=== PATIENT | female | born 1975 | race Caucasian/White ===

== ENCOUNTER → 2022-12-06 07:57 | Outpatient (CLI) | payer BC, SELFPAY ==
--- NOTE | ~2022-12-06 | MMUS_ITS ---
EXAMINATION: MM diagnostic karen BI w elizabeth, US breast BI complete HISTORY: Erythematous skin lesion of lower outer quadrant of right breast for 3 to 4 days TECHNIQUE: Full field and spot 3-D tomosynthesis images of both breasts were performed and synthetic 2-D images were generated. CAD analysis was submitted and interpreted. High resolution complete bilat eral breast ultrasound examination including all 4 quadrants and subareolar areas was performed. COMPARISON: 12/30/2021 bilateral screening mammogram report from [facility] is pr ovided with BI-RADS Category 1: Negative result BREAST PARENCHYMAL COMPOSITION: The breasts are heterogeneously dense, which may obscure small masses . FINDINGS: MAMMOGRAPHIC FINDINGS: Multiple grouped indeterminate granular appearing microcalcifications are noted in the posterior uppe r inner quadrant of the right breast. No suspicious mass or architectural distortion is noted otherwise. Heterogeneously dense stroma may o bscure masses. Bilateral complete ultrasound examination was performed. ULTRASOUND: Right breast: 12:00 6 cm from nipple: Parallel circumscribed hypoechoic lesion with central fatty tissue, measuring up to 2.5 x 6.2 x 4.7 mm, without internal vascularity or posterior shadowing, likely a small benign lymph node or other benign process. No suspicious mass or shadowing of the right breast is detected. Left breast: No suspicious mass or shadowing of the left breast is detected. IMPRESSION: 1. New grouped indeterminate granular microcalcifications in the posterior upper inner quadrant of th e right breast 2. Stereotactic biopsy of right grouped microcalcifications, posterior upper inner quadrant of right breast is recommended BI-RADS category 4, suspicious findings. Dr. Trivedi telephoned the report and stereotactic biopsy recommendation for right breast on 12/06/[address]22 a [address] Simpson. We will attempt initially to get prior mammograms for comparison. Reviewed, dictated and finalized at location A. IMPRESSION: 1. New grouped indeterminate granular microcalcifications in the posterior uppe r inner quadrant of the right breast 2. Stereotactic biopsy of right grouped microcalcifications, posterior upper in ner quadrant of right breast is recommended BI-RADS category 4, suspicious findings. Dr. Trivedi telephoned the report and stereotactic biopsy recommendation for right breast on 12/06/[address] Simpson. We will attempt initially to get prior mammograms for comparison.
== END ==
PROVIDERS: PCP Physician Assistant; Visit Provider Physician Assistant
DX: N64.9 Disorder of breast, unspecified (principal); R92.8 Other abnormal and inconclusive findings on diagnostic imaging of breast
CPT/HCPCS: 76641; 77062; 77066; G0279

== ENCOUNTER 2022-12-14 12:32 | Outpatient (CLI) | payer BC, SELFPAY ==
--- NOTE | ~2022-12-14 | MM_ITS ---
MM stereotactic bx RT, MM post biopsy diagnostic RT, MM stereotactic specimen RT INDICATION: Abnormal calcifications in the right breast. Stereotactic core biopsy is requested evalua te for malignancy.] TECHNIQUE AND FINDINGS: The risks and potential benefits of the procedure were discussed with the patient and written informe d consent was obtained. The patient was placed in the prone position clustered at the table with the right breast in mediolateral compression, and the area of interest was localized and targeted utiliz ing digital imaging with stereotaxis. After sterile preparation of the skin, 1% lidocaine was utilized for local anesthesia at the skin pun cture site and 1% lidocaine with epinephrine was utilized for deeper local anesthesia/is about the bi opsy site. A 9G [employer] vacuum assisted biopsy needle was advanced to the level of the calcification o f interest from a medial approach utilizing stereotactic guidance and a total of 6 tissue core biopsi es were obtained. A specimen radiograph demonstrates that the calcifications of interest are included within the tissue cores. A tissue marker clip was then placed at the biopsy site. The needle was removed and hemosta sis was achieved. The patient tolerated the procedure well and there is no evidence of significant i mmediate complication. The patient was given verbal as well as written postprocedural instructions p rior to discharge from the department. Tissue cores were submitted to surgical pathology for histolo gic analysis. A 2-view right unilateral digital mammogram was obtained post procedure and this demonstrates that th e tissue marker clip is in expected position.] IMPRESSION: 1. Successful stereotactic biopsy of calcifications in the upper inner quadrant of the right breast, followed by tissue marker clip placement. Please refer to pathology report for histologic analysis. Reviewed, dictated and finalized at location A. IMPRESSION: 1. Successful stereotactic biopsy of calcifications in the upper inner quadran t of the right breast, followed by tissue marker clip placement. Please refer to pathology report for histologic analysis. IMPRESSION: 1. Successful stereotactic biopsy of calcifications in the upper inner quadran t of the right breast, followed by tissue marker clip placement. Please refer to pathology report for histologic analysis.
== END 2022-12-14 12:33 | disposition home or self-care (01) ==
PROVIDERS: PCP Physician Assistant; Visit Provider Physician Assistant
DX: D05.11 Intraductal carcinoma in situ of right breast (principal)
CPT/HCPCS: 19081; 77065; 88305; 88342; 88360; 88365

== ENCOUNTER 2023-05-05 20:10 | Emergency (ER) | payer OTHER, SELFPAY ==
[2023-05-05] VITALS (9 sets, daily range): BP systolic 96–138; BP diastolic 67–91; PULSE 73–85; RESP 12–27; TEMP 36.2; O2SAT 94–100
--- NOTE | ~2023-05-05 | XR_ITS ---
EXAMINATION: XR chest 2V DATE: 05/05/2023 20:40 INDICATION: Left chest pain. TECHNIQUE: Frontal and lateral views of the chest were obtained. COMPARISON: Chest single view 06/04/2019 FINDINGS: There is no pneumonia, pleural effusion, or pneumothorax. The heart size is normal. There a re prominent paracardial fat pads. IMPRESSION: 1. No acute cardiopulmonary disease. Reviewed, dictated and finalized at location E. [employer]
--- NOTE | 2023-05-05 20:12 | ECG_ITS ---
Measurements Intervals [place] Rate: 76 P: 37 DE: 151 QRS: -9 QRSD: 88 T: 13 QT: 344 QTc: 389 Interpretive Statements SINUS RHYTHM POSSIBLE LEFT ATRIAL ENLARGEMENT DELAYED PRECORDIAL R/S TRANSITION LOW QRS VOLTAGE IN PRECORDIAL LEADS BASELINE WANDER- I, III BORDERLINE ECG NO PREVIOUS ECG AVAILABLE FOR COMPARISON Electronically Signed On 05-06-2023 6:25:50 [employer] by Ac Bass D.O.
[2023-05-05 20:33] LABS: Basophils Absolute Auto 0.1 K/mm3 (0.0-0.1); Basophils Percent Auto 0.8 % (0.2-1.2); Eosinophils Absolute Auto 0.2 K/mm3 (0-0.3); Eosinophils Percent Auto 1.6 % (0-4.4); Hematocrit 42.7 % (37.0-47.0); Hemoglobin 14.1 g/dL (12.0-15.0); Immature Granulocyte Absolute 0.06 K/mm3 (0.00-0.031); Immature Granulocyte Percent A 0.5 % (0-0.5); Lymphocytes Absolute Auto 3.21 K/mm3 (0.9-3.2); Lymphocytes Percent Auto 26.8 % (18.3-44.2); Mean Corpuscular Hemoglobin 30.1 pg (26-34); Mean Corpuscular Volume 91.2 fl (80-100); Mean Platelet Volume 10.1 fl (7.4-10.4); Monocytes Percent Auto 7.9 % (2.6-8.5); Neutrophils Absolute Auto 7.5 K/mm3 (1.3-6.7); Neutrophils Percent Auto 62.4 % (45.5-73.1); Platelet Count Result 320 k/mm3 (150-375); Red Blood Count 4.68 M/mm3 (4.2-5.4); Red Cell Distribution Width 13.2 % (11.5-14.5)
[2023-05-05 20:49] LABS: Prothrombin Time 13.3 Seconds (11.1-14.7)
[2023-05-05 20:50] LABS: Partial Thromboplastin Time 30.6 SECONDS (22.3-36.8)
[2023-05-05 21:00] LABS: Troponin I < 0.012 ng/mL (0.000-0.034)
[2023-05-05 21:06] LABS: Alanine Aminotransferase 18 U/L (6-35); Albumin Level 4.6 g/dL (3.5-5.1); Alkaline Phosphatase 69 U/L (38-126); Anion Gap 9 mmol/L (8-16); Aspartate Amino Transferase 28 U/L (14-36); Bilirubin,Total 1.3 mg/dL (0.2-1.3); Blood Urea Nitrogen 19 mg/dL (7-17); Calcium 9.4 mg/dL (8.4-10.2); Carbon Dioxide 24 mmol/L (22-30); Chloride 105 mmol/L (98-107); Estimated CRCL calculation 49 ml/min; Estimated Glomerular Filt Rate 44; Glucose 92 mg/dL (65-110); Lipase 219 U/L (23-300); Sodium 138 mmol/L (137-145)
[2023-05-05 22:44] LABS: D Dimer 0.97 ug/mL (<0.48)
[2023-05-05 23:28] LABS: Troponin I < 0.012 ng/mL (0.000-0.034)
[2023-05-06 00:16] VITALS: BP 111/69; PULSE 67; RESP 17; O2SAT 96
[2023-05-06 00:31] VITALS: BP 117/73; PULSE 82; RESP 14; O2SAT 100
[2023-05-06 00:46] VITALS: BP 128/95; PULSE 93; RESP 16; O2SAT 98
--- NOTE | 2023-05-06 00:56 | ED.CHESTPAIN ---
HPI - Chest Pain General Chief Complaint: Chest Pain Stated Complaint: chest pain/SOB Time Seen by Provider: 05/05/23 22:03 History of Present Illness HPI narrative: Patient is a 47-year-old female who presents to the emergency department this evening complaining of left-sided chest pain radiating to her back which started at approximately 5:30 p.m. this evening. Patient states that around the same time she noticed that her heart rate was elevated up to 120 requiring her to take a beta-anahy, propranolol. Patient states that after approximately 1 hour her heart rate did normalize. Patient is a physician, manager clinical research. Patient admits that she does have a history of breast cancer and an extensive family history of cancer. Patient has had double mastectomy and giving her chest pain, tachycardia she is concerned about a blood clot. Patient is anxious about her symptoms, understandably so given the sudden loss of her 2 years ago and being a single parent to 3 kids. DVTs or blood clots, and denies any history of acute coronary syndrome. Related Data Home Medications Medication Instructions Recorded Confirmed propranolol 10 mg tablet mg 05/05/23 Allergies Allergy/AdvReac Type Severity Reaction Status Date / Time No Known Allergies Allergy Verified 05/05/23 20:21 Review of Systems Review of Systems: All systems are reviewed and are negative unless stated otherwise in the HPI. 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 DX Nodular thyroid disease Surgical History Surgical History H/O bilateral mastectomy 02/09/2023 H/O breast biopsy History of orthopedic surgery Family History Family History Other Depression Hypertension Malignant carcinoid tumor of lung Nodular thyroid disease Social History Social History Smoking status: Never smoker Alcohol intake: current Drinks per week: 2 Substance use: never Substance use type: does not use Do You Feel Safe in your Home?: Yes Lack of Transportation: No Lack of Food: Never True Current Housing: I Have Housing Concerned About Future Housing: No Difficulty Paying Gas/Electric Bills: No Difficulty Paying for Meds: No Currently Unemployed: No Education: Master's Degree or Higher Difficulty w/ Childcare or Family Care: No Living arrangements: with family Occupation/Education: occupation Additional occupation/education comments: Gender identity (if verbalized by the patient): Female Sexual Orientation (if Verbalized by the Patient): Straight or Heterosexual Exam Narrative: General: Alert, awake, afebrile, in no acute distress. HEENT: PERRL, no rhinorrhea, no post nasal drip, oropharynx clear. Neck: Trachea midline, no JVD, no lymphadenopathy. Cardiovascular: Regular rate and rhythm, no murmurs, rubs or gallops, no peripheral edema. Respiratory: Clear to auscultation bilaterally, no tachypnea, no wheezing, no rhonchi, no rubs, no respiratory distress. Abdomen: Soft, nontender, nondistended, no rebound, no guarding, no peritoneal signs. Musculoskeletal: No joint swelling or deformity, normal muscle tone. Skin: No rashes or petechia, no signs of infection. Psychiatric: Alert and oriented, normal behavior and judgment for situation. Neurological: Alert and oriented to person, place, and time. Follows all commands. No focal deficits, speech is clear and fluent. Course Vital Signs Vital signs: Vital Signs Temperature 97.1 F L 05/05/23 20:18 Pulse Rate 84 05/05/23 20:18 Respiratory Rate 16 05/05/23 20:18 Blood Pressure 138/88 05/05/23 20:18 Pulse Oximetry 100 05/05/23 20:18 Oxygen Delivery Katelynn
[2023-05-06 01:01] VITALS: BP 115/84; PULSE 79; RESP 16; O2SAT 98
== END 2023-05-06 01:14 | disposition home or self-care (01) ==
PROVIDERS: Emergency Provider Emergency Medicine; PCP Physician Assistant
DX: R07.89 Other chest pain (principal); Z85.3 Personal history of malignant neoplasm of breast; R79.1 Abnormal coagulation profile
CPT/HCPCS: 36415; 71046; 80053; 83690; 84484; 85025; 85380; 85610; 85730; 93005; 99284

== ENCOUNTER 2023-06-29 07:00 | Outpatient (NON) | payer OTHER, SELFPAY | END 2023-06-29 07:01 | disposition home or self-care (01) | PROVIDERS: PCP Physician Assistant; Visit Provider Internal Medicine Gastroenterology | DX: R19.5 Other fecal abnormalities (principal) | CPT/HCPCS: 88305 ==

== ENCOUNTER 2023-06-29 08:32 | Day surgery (SDC) | payer OTHER, SELFPAY ==
[2023-05-05 15:09] VITALS: BMI 29.2
--- NOTE | 2023-06-29 08:24 | P.PNAN_ITS ---
Anes - Initial Pre Proc Eval Procedure: Operation Date: 06/29/23 10:30 Proposed Procedures p Diagnostic Colonoscopy - Elvin Liu MD Date/Time: 06/29/23 08:24 Surgeon: Elvin Liu MD Pre Op Diagnosis: Positive cologuard test Patient Data Age: 47 Gender: F Height: 1.73 m Weight: 87.09 kg Allergies Allergy/AdvReac Type Severity Reaction Status Date / Time No Known Allergies Allergy Verified 06/29/23 09:18 Home Medications Medication Instructions Recorded Confirmed Type propranolol 10 mg tablet 10 mg PO DIRECTED PRN 05/05/23 06/29/23 History Tachycardia cholecalciferol (vitamin D3) 100 100 mcg PO ONCE 05/11/23 06/29/23 History mcg (4,000 unit) capsule multivitamin 1 tablet PO DAILY 05/11/23 06/29/23 History Patient hx anesthesia problems: none Family hx anesthesia problems: none Results Review: All pre-operative results and documents have been reviewed as part of the pre- operative evaluation. 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 DX Nodular thyroid disease Palpitations Surgical History Surgical History H/O bilateral mastectomy 02/09/2023 H/O breast biopsy History of orthopedic surgery Family History Family History Other Depression Hypertension Malignant carcinoid tumor of lung Nodular thyroid disease Social History Social History Smoking status: Never smoker Alcohol intake: current Drinks per week: 2 Substance use: never Substance use type: does not use Do You Feel Safe in your Home?: Yes Lack of Transportation: No Lack of Food: Never True Current Housing: I Have Housing Concerned About Future Housing: No Difficulty Paying Gas/Electric Bills: No Difficulty Paying for Meds: No Currently Unemployed: No Education: Master's Degree or Higher Difficulty w/ Childcare or Family Care: No Living arrangements: with family Occupation/Education: occupation Additional occupation/education comments: Gender identity (if verbalized by the patient): Female Sexual Orientation (if Verbalized by the Patient): Straight or Heterosexual Anes - Eval Final PreProcedure Day of Procedure 06/29/23 08:24 Patient weight: overweight Heart: regular rate and rhythm Lungs: clear to auscultation Airway: Mallampati scale class II Neurological: alert and oriented Last oral intake: >/= 8 hours ASA classification: III Emergent: no Anesthetic plan: proceed Anesthesia type and monitoring: general GIVS and standard monitoring Results Review: All pre-operative results and documents have been reviewed as part of the pre- operative evaluation. Informed Consent: The patient's anesthetic plan and its attendant risks and benefits were discussed with the patient/family/POA. Questions were solicited and answers provided to the satisfaction of the patient/family/POA.
[2023-06-29 09:29] VITALS: BP 116/81; PULSE 82; RESP 17; TEMP 36.8; O2SAT 100; BMI 28.6
[2023-06-29] MEDS: LACTATED RINGERS 1,000 ML 150 ML IV CONT (09:52)
--- NOTE | 2023-06-29 09:53 | PM.HPGS ---
History of Present Illness History of Present Illness Consent: Risks, benefits, and alternatives have been discussed and questions answered. Patient agrees to proceed with procedure. Chief complaint: Positive cologuard test Narrative: Bruna Maciel is a 47 year old female presents for screening colonoscopy. His current weight appetite and bowel movements are normal. Patient denies abdominal pain. She has had bleeding. Family history is significant her mother and grandmother both have had colon polyps. Review of Systems Review of Systems: Review of systems noncontributory. 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 DX Nodular thyroid disease Palpitations Surgical History Surgical History H/O bilateral mastectomy 02/09/2023 H/O breast biopsy History of orthopedic surgery Family History Family History Other Depression Hypertension Malignant carcinoid tumor of lung Nodular thyroid disease Social History Social History Smoking status: Never smoker Alcohol intake: current Drinks per week: 2 Substance use: never Substance use type: does not use Do You Feel Safe in your Home?: Yes Lack of Transportation: No Lack of Food: Never True Current Housing: I Have Housing Concerned About Future Housing: No Difficulty Paying Gas/Electric Bills: No Difficulty Paying for Meds: No Currently Unemployed: No Education: Master's Degree or Higher Difficulty w/ Childcare or Family Care: No Living arrangements: with family Occupation/Education: occupation Additional occupation/education comments: Gender identity (if verbalized by the patient): Female Sexual Orientation (if Verbalized by the Patient): Straight or Heterosexual Meds Home Medications and Allergies Home Medications Medication Instructions Recorded Confirmed Type propranolol 10 mg tablet 10 mg PO DIRECTED PRN 05/05/23 06/29/23 History Tachycardia cholecalciferol (vitamin D3) 100 100 mcg PO ONCE 05/11/23 06/29/23 History mcg (4,000 unit) capsule multivitamin 1 tablet PO DAILY 05/11/23 06/29/23 History Allergies Allergy/AdvReac Type Severity Reaction Status Date / Time No Known Allergies Allergy Verified 06/29/23 09:18 Vital Signs Vital Signs - 24 hr 06/29/23 09:29 Temperature 98.3 F Pulse Rate 82 Respiratory Rate 17 Blood Pressure 116/81 Pulse Oximetry 100 Oxygen Delivery Room Air Exam Narrative: Physical exam reveals patient able. HEENT exam is unremarkable. Patient is anicteric. Lungs are clear to auscultation and to percussion. Heart is without murmur or extra sounds. Abdomen bowel sounds are present soft nontender with no organomegaly. Digital external rectal exam is normal. Assessment and Plan Assessment and plan (1) Positive colorectal cancer screening using Cologuard test: Code(s): R19.5 - Other fecal abnormalities Status: Acute Assessment and Plan: Patient with positive Cologuard. For this reason screening colonoscopy will be performed today. (2) Family history of colonic polyps: Code(s): Z83.719 - Family history of colon polyps, unspecified Status: Acute Assessment and Plan: Patient reports both mother and maternal grandmother have had colon polyps. Plan for surveillance colonoscopy now, consider this at 5 year intervals.
[2023-06-29 10:58] VITALS: BP 108/66; PULSE 73; RESP 16; O2SAT 100
[2023-06-29 11:08] VITALS: BP 134/82; PULSE 69; RESP 14; O2SAT 100
[2023-06-29 11:18] VITALS: BP 121/77; PULSE 81; RESP 15; O2SAT 100
--- NOTE | 2023-06-29 11:19 | WPDANESPN ---
Anes - Prog Note Post-Op Date/Time: 06/29/23 11:19 Cardiovascular status: normal Respiratory status: normal Airway patency: baseline Mental status: baseline Post-Op hydration status: normal Vital Signs: Last Vital Signs Temp 36.8 C 06/29/23 09:29 Pulse 73 06/29/23 10:58 Resp 16 06/29/23 10:58 BP 108/66 06/29/23 10:58 Pulse Ox 100 06/29/23 10:58 O2 Del Method Room Air 06/29/23 10:58 Pain Score (VAS): 0 I/O: Intake & Output 06/28/23 06/29/23 06/29/23 23:59 07:59 15:59 Intake Total 0 Balance 0 Post-procedural complaints: none Patient Feedback: Patient satisfied with anesthetic care. Other Findings: Patient vital signs back to baseline. Patient denies nausea and vomiting. Patient's pain under control. Patient OK for discharge.
== END 2023-06-29 11:29 | disposition home or self-care (01) ==
PROVIDERS: PCP Physician Assistant; Visit Provider Internal Medicine Gastroenterology
PROC: 0DJD8ZZ Inspection of Lower Intestinal Tract, Via Natural or Artificial Opening Endoscopic (ICD-10-PCS; CPT 45378; principal; 2023-06-29 10:30)
DX: R19.5 Other fecal abnormalities (principal); Z83.718 Family history of other colon polyps; D12.5 Benign neoplasm of sigmoid colon; K64.8 Other hemorrhoids
CPT/HCPCS: 45385

== ENCOUNTER 2023-09-07 08:45 | Outpatient (CLI) | payer OTHER, SELFPAY ==
--- NOTE | ~2023-09-07 | US_ITS ---
EXAMINATION: US soft tissue head and neck DATE: 09/07/2023 09:42 INDICATION: Cervical lymphadenopathy. TECHNIQUE: Multiple ultrasound images of the thyroid were obtained. COMPARISON: None. FINDINGS: The right thyroid lobe measures 4.2 x 1.2 x 2.0 cm. The left thyroid lobe measures 4.5 x 1.2 x 1.6 c m. In the left thyroid lobe, there is a 5 mm solid, hypoechoic, wider than tall nodule with smooth m argin without echogenic foci (TI-RADS TR4). In the right thyroid lobe, there is a 9 mm solid, hypoech oic, wider than tall nodule with lobulated margin and punctate echogenic foci (TR5). In the right thy roid lobe, there is a 9 mm solid, hypoechoic, wider than tall nodule with lobulated margins with punc lira echogenic foci (TR5). In the right thyroid lobe, there is a 12 mm solid, hypoechoic, wider than tall nodule with smooth margin without echogenic foci (TR4). There is no abnormal lymphadenopathy. IMPRESSION: 1. Thyroid nodules. Thyroid ultrasound is recommended in one year. 2. No abnormal lymphadenopathy. Reviewed, dictated and finalized at location E.
--- NOTE | ~2023-09-07 | US_ITS ---
Limited Abdominal Sonogram: Real-time sonographic imaging of the right upper quadrant was performed. Clinical History: Elevated bilirubin Findings: The liver appears normal with no evidence of mass lesion or bile duct dilatation. Main por heidy vein demonstrates normal direction of flow. The gallbladder is well distended, and demonstrates p robable 5 mm polyp. The common bile duct measures 2 mm. The visualized pancreas, aorta, and IVC are unremarkable. Impression: Probable 5 mm gallbladder wall polyp. Reviewed, dictated and finalized at location M. Impression: Probable 5 mm gallbladder wall polyp.
== END 2023-09-07 08:46 | disposition home or self-care (01) ==
PROVIDERS: PCP Physician Assistant; Visit Provider Physician Assistant
DX: R59.0 Localized enlarged lymph nodes (principal); R17 Unspecified jaundice
CPT/HCPCS: 76536; 76705

== ENCOUNTER 2024-03-28 14:05 | Emergency (ER) | payer OTHER, SELFPAY ==
[2024-03-28 14:16] VITALS: BP 126/87; PULSE 82; RESP 18; TEMP 36.2; O2SAT 100
--- NOTE | 2024-03-28 14:18 | ED_ITS ---
HPI - URI/Sore Throat General Chief Complaint: Upper Respiratory Infection Stated Complaint: Fever, Headache Source: patient, RN notes reviewed and old records reviewed Mode of arrival: ambulatory Limitations: no limitations History of Present Illness HPI Narrative: patient who just began taking Zoloft 5 days ago presents today with complaints of nausea, diarrhea, headache, disturbed sleep, dizziness, sweating. She reports symptoms have been present 3 days. Symptoms began while she was traveling to [facility] by airplane. She reports that she feels better than she did 3 days ago, but still feels not right . She denies any fever. She denies any injury or trauma. She has been taking [id number] medications for her symptoms. She voices no other concerns or complaints at this time Related Data Home Medications ?Medication ?Instructions ?Recorded ?Confirmed ?Last Taken ?Type propranolol 10 mg tablet 10 mg PO DIRECTED PRN 05/05/23 03/07/24 05/05/23 History Tachycardia cholecalciferol (vitamin D3) 100 100 mcg PO ONCE 05/11/23 03/07/24 05/11/23 History mcg (4,000 unit) capsule multivitamin 1 tablet PO DAILY 05/11/23 03/07/24 05/11/23 History metformin 500 mg tablet mg PO 03/07/24 03/07/24 Unknown History Allergies Allergy/AdvReac Type Severity Reaction Status Date / Time No Known Allergies Allergy Verified 03/28/24 14:08 Review of Systems Review of Systems: All systems reviewed & are unremarkable except as noted in HPI and below Constitutional: Constitutional: Reports as per HPI, Reports no additional constitutional complaints, Reports excessive sweating, Reports headache(s) and Reports lethargy ENT: Reports system reviewed and no additional complaints, except as documented Cardiovascular: Cardiovascular: Reports no additional cardiovascular complaints Respiratory: Respiratory: Reports no additional respiratory complaints Gastrointestinal: Gastrointestinal: Reports no additional gastrointestinal complaints, Reports diarrhea and Reports nausea Neurologic: Reports dizziness PMFSH Past Medical History Medical History (Updated 03/28/24 @ 14:42 by Marilin Aparicio APRN) Gallbladder polyp Abnormal colonoscopy pt had polyp, told her it was benign Palpitations 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 left normal - right side DX Nodular thyroid disease Surgical History Surgical History H/O bilateral mastectomy 02/09/2023 H/O breast biopsy History of orthopedic surgery Family History Family History Other Depression Hypertension Malignant carcinoid tumor of lung Nodular thyroid disease Social History Social History Smoking status: Never smoker Alcohol intake: current Drinks per week: 2 Substance use: never Substance use type: does not use Do You Feel Safe in your Home?: Yes Lack of Transportation: No Lack of Food: Never True Current Housing: I Have Housing Concerned About Future Housing: No Difficulty Paying Gas/Electric Bills: No Difficulty Paying for Meds: No Currently Unemployed: No Education: Master's Degree or Higher Difficulty w/ Childcare or Family Care: No Living arrangements: with family Occupation/Education: occupation Additional occupation/education comments: Gender identity (if verbalized by the patient): Female Sexual Orientation (if Verbalized by the Patient): Straight or Heterosexual Comments At the time of my signature, I reviewed and agree with the nursing past medical, surgical, social, and family history. There is no relevant family history pertinent to the patient complaint. Exam Const: General: cooperative, no acute distress, alert and awake Orientation/consciousness: oriented to person, oriented to place and oriented to time HENMT: Head: normal to inspection Resp: Effort & Inspection: normal respiratory effort and able to speak in complete sentences Auscultation: clear to auscultation bilaterally, no crackles, no rales, no rhonchi and no wheezes Cardio: Palpation: normal PMI Rate: regular rate Rhythm: regular rhythm Heart sounds: S1 normal heart sound present and S2 normal heart sound present Neuro: General: oriented to person, oriented to place and oriented to time Cranial nerves: Yes CN's II-XII intact bilaterally Psych: Appearance: grossly normal Thought process: Normal thought process present Insight: Good insight present (Psych) Judgement: Good judgement present (Psych) Course Course Level of Care: Express Care Visit Vital Signs Vital signs: Vital Signs Temperature 97.2 F L 03/28/24 14:16 Pulse Rate 82 03/28/24 14:16 Respiratory Rate 18 03/28/24 14:16 Blood Pressure 126/87 03/28/24 14:16 Pulse Oximetry 100 01/29/25 14:16 Oxygen Delivery Room Air 03/28/24 14:16 Temperature 97.2 F L 03/28/24 14:16 Pulse Rate 82 03/28/24 14:16 Respiratory Rate 18 03/28/24 14:16 Blood Pressure 126/87 03/28/24 14:16 Pulse Oximetry 100 03/28/24 14:16 Oxygen Delivery Room Air 03/28/24 14:16 Reviewed MDM - URI/Sore Throat MDM Narrative Medical decision making narrative: negative COVID, negative flu. Patient just started Zoloft 5 days ago. Symptoms likely secondary to her body becoming used to the new medication. This was discussed with patient at length. She is encouraged to call her primary care provider to discuss further if symptoms become intolerable. Emergency department precautions discussed. Discharge instructions reviewed with patient, as well as provided in writing per nursing staff. The instructions also include specific and strict return/GO TO THE ER as well as f/u information. All questions have been answered, and the patient deny any further questions with discharge and discharge plan. Some parts of this dictation were generated by voice recognition software and may contain typographical and/or grammatical inaccuracies. Differential Diagnosis Differential diagnosis: Likely upper respiratory infection, viral infection, influenza and other (Medication reaction) Medical Records Attestation: I reviewed the patient's medical records. Lab Data Attestation: I reviewed the patient's lab results. Discharge Plan Discharge Clinical Impression: Malaise Patient Disposition: Home, Self-Care Condition: Stable Instructions: Antibiotic Form Additional Instructions: follow-up with primary care provider. Emergency department for new or worse symptoms Patient Language: Argentine Prescriptions: No Action metformin 500 mg tablet PO Rx Instructions: twice a day propranolol 10 mg tablet 10 mg PO DIRECTED PRN (Reason: Tachycardia) multivitamin [Daily Multivitamin] Tablet 1 tablet PO DAILY Vitamin D3 100 mcg (4,000 unit) Capsule 100 mcg PO ONCE Follow-up/Referrals: Tatiana,BRITANY Choe [Primary Care Provider] - 3 Days Time of Disposition: 14:42
[2024-03-28 14:35] LABS: EDCOVIDSCREEN Negative (Negative); EDINFLUASCREEN Negative (Negative); EDINFLUBSCREEN Negative (Negative)
--- OUTSIDE RECORDS SUMMARY | 2024-03-28 14:55 | XMS_ITS | Clinical Summary ---
Author Organization [facility] Address [address] [place]: Epic Prelude ADT [place] P[place] [address] Care Team Providers Care Platform Worker Name Role Phone Unavailable Primary Care Provider Unavailabl e Allergies No known active allergies Encounters Date Type Department Care Team Description 03/20/2024 External Device Data [facility] ABSTRACTION Provider, Abstract 03/13/2024 External Device Data [facility] ABSTRACTION Provider, Abstract from Last 3 Months Family History Medical History Relation Name Comments Healthy Brother 1 Hypertension Brother 2 Hypertension Father Healthy Mother Relation Name Status Comments Brother 1 Alive Brother 2 Alive Father Alive Mother Alive Social History Tobacco Use Types Packs/Day Years Used Date Smoking Tobacco: Never Comments Yes Sex and Gender Information Value Date Recorded Sex Assigned at Not on file 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 Gender Identity Not on file Sexual Orientation Not on file Plan of Treatment Health Maintenance Due Date Last Done Comments DTAP/TDAP/TD VACCINES (1 - Tdap) 1996 HEPATITIS B VACCINES (1 of 3 - 19+ 3-dose series) 1996 CERVICAL CANCER SCREENING 08/17/2007 BREAST CANCER SCREENING 2017 COLORECTAL SCREENING 2022 Colorectal Cancer Screening 2022 FIT-DNA Q 3 years 2022 FIT/FOBT Q 1 year 2022 Flex Sig/CT Colonography Q 5 years 2022 INFLUENZA VACCINE (#1) 2023 RSV VACCINE (60+ or ) (1 - 1-dose 75+ series) 2052 HPV VACCINES Aged Out No longer eligi ble based on patient's age to complete this topic PNEUMOCOCCAL VACCINE 0-64 YEARS Aged Out No longer eligible based on patient's age to complete this topic [facility]
--- OUTSIDE RECORDS SUMMARY | 2024-03-28 14:55 | XMS_ITS | Encounter Summary ---
Author Organization [facility] Healthcare Address [address] [place] [address] Care Team Providers Care Window Shade Installer Name Role Phone Unavailable Primary Care Provider Unavailabl e Reason for Visit * Diagnostic Imaging (Routine) - Closed Specialty Diagnoses / Procedures Referred By Contac t Referred To Contact Procedures Breast Imaging Diagnostic Outside Reference Gabriella Szymanski MD [address] [place] [id number] Phone: tel: fax: Referral ID Status Reason Start Date Expiration Date Visits Re quested Visits Authorized [id number] Closed 12/28/2022 01/27/2024 1 1 Encounter Details Date Type Department Care Team (Late st Contact Info) Description 02/20/[address] 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 ??There will be no report generated by a [facility] Radiologist. Narrative [facility] - 12/28/2022 10:48 AM CDT EXAMINATION: ??Images For Reference Purposes Only us Gabriella Szymanski MD IMG MAMMO PROCEDURES Fi nal Result [facility] documented in this encounter Visit Diagnoses Not on filedocumented in this encounter
--- OUTSIDE RECORDS SUMMARY | 2024-03-28 14:55 | XMS_ITS ---
Author Organization [facility] Address [address] [place] [address] Care Team Providers Care Aviation Support Equipment Repairer Name Role Phone IVAN LAMBERT [phone] Medications Medication SIG (Take, Route, Fr equency, Duration) Notes Start Date End Date Status Sertraline HCl 25 MG 1 tablet Orally Onc e a day for 90 days 03/14/2024 Active Encounters Encounter Location Date Provider Diagnosis [facility] [place] [address] [place] [address] 03/14/2024 IVAN LAMBERT Plan Of Treatment Medication Medication Name Sig Start Date Stop Date Notes Sertraline HCl 25 MG 1 tablet Orally Onc e a day for 90 days 03/14/2024 Progress Notes * Rashaun HOLLANDOB:1975 ([age] yo F)Acc No.[id number]:03/14/2024 Patient:?Bruna HOLLAND :1975???Age:48 Y???Sex:Female Address:[address] [place] [id number] * Refills? Start Sertraline HCl Tablet, 25 MG, Orally, 90 Tablet, 1 tablet, Once a day, 90 days, Refills=1 * true * Date:? Generated for Tommy cruz/Dimitry/eTransmitting on:?03/28/2024 02:54 PM MANUFACTURING SCHEDULER
--- OUTSIDE RECORDS SUMMARY | 2024-03-28 14:55 | XMS_ITS | Encounter Summary ---
Author Organization [facility] Healthcare Address [address] [place] [address] Care Team Providers Care Bsa Officer Name Role Phone Unavailable Primary Care Provider Unavailabl e Reason for Visit * Diagnostic Imaging (Routine) - Closed Specialty Diagnoses / Procedures Referred By Contac t Referred To Contact Diagnoses Malignant neoplasm of left female breast, unspecified estrogen receptor status, unspecified site of breast (HCC) Procedures Breast Imaging Diagnostic [place] [address] [place] [id number] Phone: tel: fax: Referral ID Status Reason Start Date Expiration Date Visits Re quested Visits Authorized [id number] Closed 12/28/2022 01/27/2024 1 1 Encounter Details Date Type Department Care Team (Late st Contact Info) Description 02/14/2019 Hospital Encounter [facility]iology [facility] [address] [place] [id number] Social History Tobacco Use Types Packs/Day Years [...] DIAGNOSTIC OUTSIDE REFERENCE Routine 02/14/2019 12:00 AM [employer]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 ??There will be no report generated by a [facility] Radiologist. Narrative [facility] - 12/28/2022 10:37 AM CDT EXAMINATION: ??Images For Reference Purposes Only us Gabriella Szymanski MD IMG MAMMO PROCEDURES Fi nal Result [facility] documented in this encounter Visit Diagnoses Not on filedocumented in this encounter
--- OUTSIDE RECORDS SUMMARY | 2024-03-28 14:55 | XMS_ITS | Referral Summary ---
Author Organization [facility] Address [address] [place] [phone] Care Team Providers Care Toolroom Clerk Name Role Phone Daija Simpsonzara VANG Primary Care Pr ovider Encounters Date Type Department Care Team Description 01/25/2024 1:24 PM DIKE SUPERVISOR - 01/25/2024 11:59 PM DIKE SUPERVISOR Hospital Encounter [facility] PATHOLOGY [address] [address] Lesion of oropharynx Discharge Disposition: Discharge to home or self care 01/25/2024 1:00 PM DIKE SUPERVISOR Office Visit [facility] Department of Otolaryngology Head-Neck Division [address] [place] [phone] Guy Gill MD Lesion of oropharynx (Primary Dx) 01/12/2024 4:15 PM DIKE SUPERVISOR - 01/12/2024 11:59 PM DIKE SUPERVISOR Hospital Encounter [facility] at [address] [phone] Adenoid vegetations; Chronic lymphadenitis Discharge Disposition: Discharge to home or self care 01/05/2024 Telephone [facility] Department of Otolaryngology Head-Neck Division [address] [place] [phone] Flori Thompson RN 01/05/2024 Orders Only [facility] Department of Otolaryngology Head-Neck Division [address] [facility] Floor 5 [place] [address] Guy Gill MD 01/05/2024 [facility] - [facility] ENT [address] [facility] 11th [place] [address] [place] [address] Carolee Patel MS from Last 3 Months Allergies No known active allergies Medications cholecalciferol (VITAMIN D-3) 2000 unit capsuleIndication s:Vitamin D Deficiency Take 1 capsule (2,000 Units total) by mouth decal applier before breakfast 2 Active multivitamin capsuleIndication s:Vitamin Deficiency Prevention Take 1 capsule by mouth decal applier before breakfast 2 Active silver sulfadiazine (SILVADENE, SSD) 1 % cream Apply topically 2 (two) times a day To both breast wounds 50 g 4 Active busPIRone (BUSPAR) 5 mg tablet Take 1 tablet (5 mg total) by mouth 2 (two) times a day 4 Active Active Problems Problem Noted Date Diagnosed Date Lesion of oropharynx 01/25/2024 Malignant neoplasm of female breast 01/11/2023 Ductal carcinoma in situ (DCIS) of right breast 01/03/2023 Social History Tobacco Use Types Packs/Day Years [...] Orientation Straight 12/20/2022 9: 32 PM CDT Last Filed Vital Signs Vital Sign Reading Time Taken Comments Blood Pressure 141/98 01/25/2024 1:04 PM DIKE SUPERVISOR Pulse 99 01/25/2024 1:04 PM DIKE SUPERVISOR Temperature 36.8 ??C (98.2 ??F) 01/25/2024 1:04 PM CS T Respiratory Rate 18 01/25/2024 1:04 PM DIKE SUPERVISOR Oxygen Saturation 100% 01/25/2024 1:04 PM DIKE SUPERVISOR Inhaled Oxygen Concentration - - Weight 88.3 kg (194 lb 9.6 oz) 01/25/2024 1:04 P M DIKE SUPERVISOR Height 172.7 cm (5' 7.99 ) 01/25/2024 1:04 PM CS T Body Mass Index 29.6 01/25/2024 1:04 PM DIKE SUPERVISOR Plan of Treatment Not on file Medical Devices Implanted Type Area Induction Heating Equipment Setter Device Identifier Shelf Expiration Date Model / Serial / Lot [employer] Implant Hsc Gel Breast Smooth Round Moderate 600cc [id number] - [id number] - [id number] Implanted:Qty: 1 on 02/09/2023 by Saira Camilo MD at [facility] Breast Right: Breast [employer] [id number] P / [id number] / Description:IMPLANT PAUSE PE RFORMED [employer] Implant Hsc Gel Breast Smooth Round Moderate 600cc [id number] - [id number] - [id number] Implanted:Qty: 1 on 02/09/2023 by Saira Camilo MD at [facility] Breast Left: Breast [employer] [id number] P / [id number] / Description:IMPLANT PAUSE PE RFORMED [employer] Graft Tissue Tailored Dermis Large 1mm Thick Cortiva 10.2x21.1cm [id number] - [id number] - [id number] Implanted:Qty: 1 on 02/09/2023 by Saira Camilo MD at [facility] Left: Breast [employer] 04/28/2027 [id number] / [id number] / [id number] [employer] Graft Tissue Tailored Dermis Large 1mm Thick Cortiva 10.2x21.1cm [id number] - [id number] - [id number] Implanted:Qty: 1 on 02/09/2023 by Saira Camilo MD at [facility] Right: Breast [employer] 03/30/2027 [id number] / [id number] / [id number] [employer] Mesh Surg [place] 3d 21x7.5cm Soft Tissue Scaffold Cottle [id number] - [id number] Implanted:Qty: 1 on 02/09/2023 by Saira Camilo MD at [facility] Bilateral: Breast [employer] 10/19/2025 [id number] / / [id number] Description:Implant pause pe rformed Shashi Adi Mesh Surgical P4hb Synthetic [place] Gal[place]lex Lite 17cm Soft Tissue Repair [id number] - [id number] Implanted:Qty: 1 on 02/09/2023 by Saira Camilo MD at [facility] Right: Breast Shashi [place] 12/29/2023 [id number] / / [id number] Description:Implant pause pe rformed Shashi [place] Mesh Surgical P4hb Synthetic [place] Galaflex Lite 17cm Soft Tissue Repair [id number] - [id number] Implanted:Qty: 1 on 02/09/2023 by Saira Camilo MD at [facility] Left: Breast Shashi Adi 12/29/2023 [id number] / / [id number] Description:Implant pause pe rformed Procedures Procedure Name Priority Date/Time Associated Diagnosis Comments SURGICAL PATHOLOGY Routine 01/25/2024 1:24 PM DIKE SUPERVISOR Lesion of oropharynx CT SOFT TISSUE NECK W CONTRAST Schedule Routine, Read Routine (OP Routine) 01/12/2024 4:37 PM DIKE SUPERVISOR Adenoid vegetations Chronic lymphadenitis from Last 3 Months Results * Surgical pathology (01/25/2024 1:24 PM DIKE SUPERVISOR) Tissue (Pharynx, biopsy) 01/25/2024 1:24 PM DIKE SUPERVISOR 01/25/2024 5:47 PM DIKE SUPERVISOR Narrative PATHOLOGY [facility] - 01/28/2024 3:47 PM DIKE SUPERVISOR EPIC results best viewed via link to PDF [facility] [place] [address] Note to Patients: This report may contain a detailed description of human tissue sent by a health care provider to the laboratory for pathologic evaluation. The content of this report is essential for diagnosis and may provide important critical findings. This information may be unfamiliar to patients to review without a medical professional present. It is advised that the patient review this report in the presence of a health care provider who can answer questions and explain the details. SURGICAL PATHOLOGY REPORT FINAL Patient Name: ?? KARL HOLLAND Gender: ??F : ??1975 (Age: 48) Address: ??[address] [place] [address] ??[phone] Hospital #: ??[id number] Taken:01/25/2024 Received:01/25/2024 Reported: 01/28/2024 Patient Type: [facility] SPECIMEN ?? Service: Laboratory Location: Physician(s): ??Guy Gill M.D. Diagnosis: A. ??Oropharynx, anterior pillar, biopsy: ? - Squamous papilloma mxxm/01/28/2024 15:47 By this signature, I attest that the above diagnosis is based upon my personal examination of the slides(and/or other material indicated in the diagnosis). Shanika Aguillon MD Report Electronically Reviewed and Signed Out By ??Shanika Aguillon MD 01/28/2024 15:47:45 History: The patient is a 48-year-old woman presenting with lesion of oropharynx. ??Operative procedure: ??Biopsy of anterior pilar. Specimen(s) Received: A: Anterior pillar biopsy Gross Description: Received in formalin, labeled with the patient's name and date of is a 0.3 x 0.3 x 0.2 cm fragment of white and pink tissue. ??Labeled A1. ??Jar 0 ? sxst/01/25/2024 18:39 PA(s): Tracey Stockton By this signature, I attest that the above diagnosis is based upon my personal examination of the slides(and/or other material). Addenda/Procedures The performance characteristics of some immunohistochemical stains, fluorescence in-situ hybridization tests and immunophenotyping by flow cytometry cited in this report (if any) were determined by the Surgical Pathology and Flow Cytometry Departments at [facility] as part of an ongoing senior quality technician program and in compliance with federally mandated regulations drawn from the Clinical Laboratory Improvement Act of 1988 (CLIA '88). ??Some of these tests rely on the use of analyte specific reagents and are subject to specific labeling requirements by the US Food and Drug Administration. ??Such diagnostic tests may only be performed in a facility that is certified by the Department of Health and Human Services as a high complexity laboratory under CLIA '88. ??The FDA has determined that such clearance or approval is not necessary. ??This test is used for clinical purposes. ??It should not be regarded as investigational or for research. ??Nevertheless, federal rules concerning the medical use of analyte specific reagents require that the following disclaimer be attached to the report: This test was developed and its performance characteristics determined by the Surgical Pathology and Flow Cytometry Departments of [facility]. ??It has not been cleared or approved by the U. S. Food and Drug Administration. IMAGES AND SCANNED DOCUMENTS, IF INCLUDED, ONLY VIEWABLE IN PDF VERSION OF REPORT Guy Gill MD LAB PATHOLOGY ORDERABLES Final Result PATHOLOGY [facility] 3rd Floor [place], [place] [phone] * CT Neck Soft Tissue W Contrast (01/12/2024 4:37 PM DIKE SUPERVISOR) Anatomical Region Laterality Modality Head and Neck N/A Computed Tomogra phy 01/13/2024 9:54 AM DIKE SUPERVISOR Impressions 01/13/2024 9:54 AM DIKE SUPERVISOR 1. ??Prominent left level 2 cervical lymph node that could be reactive. Otherwise, no lymphadenopathy. 2. ??Continued clinical surveillance recommended. Follow-up imaging could be performed as clinically warranted. 3. ??Mild asymmetric thickening along the vallecular sinus, which is indeterminate. Consider direct visual inspection for further evaluation. Electronically signed by: Joby Burger M.D. Narrative 01/13/2024 9:[address] SOFT TISSUE NECK W CONTRAST 01/12/2024 4:15 PM CLINICAL INDICATION: chronic disease of tonsils. ?? COMPARISON: None. TECHNIQUE: CT scan of the neck was performed with contrast. 75 mL of Optiray 350 was administered intravenously. Coronal and sagittal reformatted images were generated. FINDINGS: No lesions are identified in the oral cavity. There are multiple tonsilliths bilaterally. Prominent nasopharyngeal soft tissues likely represents adenoids. The oral pharynx is normal. There is mild asymmetric thickening along the right vallecular sinus that extends to the epiglottis. The piriform sinus is normal. The vocal cords and larynx are otherwise. The parotid and submandibular glands are normal. A right thyroid nodule measures 6 mm. There is a smaller left thyroid nodule. There are multiple prominent cervical lymph nodes. For example, a left level 2 cervical lymph node measures 9 mm. This is located at the level of the skin marker. There is no supraclavicular lymphadenopathy. There is no fluid collection or soft tissue mass in the neck. There are no acute findings in the visualized upper chest. There is partial visualization of bilateral breast prostheses. The visualized lungs are clear. There are no acute findings in the visualized brain. The visualized paranasal sinuses and mastoid air cells are clear. The visualized orbits are normal. There is no acute vascular abnormality. There is no acute osseous abnormality. Procedure Note Joby Burger MD - 01/13/2024 CT SOFT TISSUE NECK W CONTRAST 01/12/2024 4:15 PM CLINICAL INDICATION: chronic disease of tonsils. COMPARISON: None. TECHNIQUE: CT scan of the neck was performed with contrast. 75 mL of Optiray 350 was administered intravenously. Coronal and sagittal reformatted images were generated. FINDINGS: No lesions are identified in the oral cavity. There are multiple tonsilliths bilaterally. Prominent nasopharyngeal soft tissues likely represents adenoids. The oral pharynx is normal. There is mild asymmetric thickening along the right vallecular sinus that extends to the epiglottis. The piriform sinus is normal. The vocal cords and larynx are otherwise. The parotid and submandibular glands are normal. A right thyroid nodule measures 6 mm. There is a smaller left thyroid nodule. There are multiple prominent cervical lymph nodes. For example, a left level 2 cervical lymph node measures 9 mm. This is located at the level of the skin marker. There is no supraclavicular lymphadenopathy. There is no fluid collection or soft tissue mass in the neck. There are no acute findings in the visualized upper chest. There is partial visualization of bilateral breast prostheses. The visualized lungs are clear. There are no acute findings in the visualized brain. The visualized paranasal sinuses and mastoid air cells are clear. The visualized orbits are normal. There is no acute vascular abnormality. There is no acute osseous abnormality. IMPRESSION: 1. Prominent left level 2 cervical lymph node that could be reactive. Otherwise, no lymphadenopathy. 2. Continued clinical surveillance recommended. Follow-up imaging could be performed as clinically warranted. 3. Mild asymmetric thickening along the vallecular sinus, which is indeterminate. Consider direct visual inspection for further evaluation. Electronically signed by: Joby Burger M.D. Madhavi Cochran NP IMG CT PROCEDURES Final Re sult from Last 3 Months Insurance [employer] OPEN ACCESS [employer] OPEN ACCESS Care Teams Toolroom Clerk Relationship Specialty Start Date End Date Daija Simpson PA PCP - General Physician Audio Visual Arts Director 12/20/22
--- OUTSIDE RECORDS SUMMARY | 2024-03-28 14:55 | XMS_ITS ---
Author Organization [email or web address] Address [address] [place] [address] Care Team Providers Care Engine Pilot Name Role Phone IVAN LAMBERT Unavailable [phone] CochranBjorn tello Unavailable [phone] REASON FOR VISIT Message Encounters Encounter Location Date Provider Diagnosis [facility] [address] [place] [address] 01/10/2024 Bjorn Cochran Chronic lymphadenitis, except mesenteric I88.1 and Other chronic diseases of tonsils and adenoids J35.8 Assessments Encounter Date Diagnosis (ICD Code) Assessment Notes Treatment Notes Treatment Clinical Notes Section Notes 01/10/2024 Chronic lymphadenitis, except mesenteric (ICD-10 - I88.1) 01/10/2024 Other chronic diseases of tonsils and adenoids (ICD-10 - J35.8) Plan Of Treatment Pending Test Test Name Order Date CT NECK SOFT TISSUE WITH CONTRAST 2023 Progress Notes * Rashaun HOLLANDOB:1975 ([age] yo F)Acc No.[id number]:01/10/2024 Patient:?Gabriel HOLLANDn :1975???Age:48 Y???Sex:Female Address:[address] [place] [id number] Subjective: * Chief Complaints: * ???Message * Medical History:? * Surgical History:? * Hospitalization/Major Diagno stic Procedure:? * Medications:? Objective: * Vitals:? * Physical Examination:? Assessment: * Assessment: 1.?Chronic lymphadenitis, ex cept mesenteric - I88.1 (Primary)???2.?Other chronic diseases of tonsils and adenoids - J35.8??? Plan: * Treatment: 2.?Other chronic diseases of tonsils and adenoids?Imaging: CT NECK SOFT TISSUE WITH CONTRAST * Procedure Codes:? * true * Date:? Generated for Tommy cruz/Dimitry/eTsantossmitting on:?03/28/2024 02:55 PM DRUG ABUSE SOCIAL WORKER
--- OUTSIDE RECORDS SUMMARY | 2024-03-28 14:55 | XMS_ITS | Clinical Summary ---
Author Organization [facility] Address [address] [place] [address] Care Team Providers Care Oceanographer Geological Name Role Phone Daija Simpson Sonja VANG Primary Care Pr ovider Allergies No known active allergies Medications cholecalciferol (VITAMIN D-3) 2000 unit capsuleIndication s:Vitamin D Deficiency Take 1 capsule (2,000 Units total) by mouth negative turner before breakfast 2 Active multivitamin capsuleIndication s:Vitamin Deficiency Prevention Take 1 capsule by mouth negative turner before breakfast 2 Active silver sulfadiazine (SILVADENE, [...] in situ (DCIS) of right breast 01/03/2023 Encounters Date Type Department Care Team Description 01/25/2024 1:24 PM BACTERIOLOGY TEACHER - 01/25/2024 11:59 PM [facility] Hospital Encounter [facility] PATHOLOGY [address] [address] Lesion of oropharynx Discharge Disposition: Discharge to home or self care 01/25/2024 1:00 PM BACTERIOLOGY TEACHER Office Visit [facility] Department of Otolaryngology Head-Neck Division [facility] Floor 5 [place] [phone] Guy Gill MD Lesion of oropharynx (Primary Dx) 01/12/2024 4:15 PM BACTERIOLOGY TEACHER - 01/12/2024 11:59 PM BACTERIOLOGY TEACHER Hospital Encounter [facility] at [address] [phone] Adenoid vegetations; Chronic lymphadenitis Discharge Disposition: Discharge to home or self care 01/05/2024 Telephone [facility] Department of Otolaryngology Head-Neck Division [address] [place] [address] Floor 5 [place] [phone] Flori Thompson RN 01/05/2024 Orders Only [facility] Department of Otolaryngology Head-Neck Division [address] [place] [address] Floor 5 [place] [phone] Guy Gill MD 01/05/2024 Telephone [facility] Advanced [facility] ([facility]) - [facility] ENT [address] [facility] Advanced Medicine 11th [place] [address] [place] [phone] Carolee Patel MS from Last 3 Months Surgical History Surgery Date Site/Laterality Comments KNEE SURGERY 02/29/1996 - 02/27/1997 Right BREAST BIOPSY 12/15/2022 Medical History Medical History Date Comments Thyroid disease Overweight Depression Family History Medical History Relation Name Comments Lung cancer Father Lung cancer Father's Sister Anesthesia problems Neg Hx Relation Name Status Comments Father Father's Sister Social History Tobacco Use Types Packs/Day Years [...] Orientation Straight 12/20/2022 9: 32 PM CDT Obstetrics History Last Filed Vital Signs Vital Sign Reading Time Taken Comments Blood Pressure 141/98 01/25/2024 1:04 PM BACTERIOLOGY TEACHER Pulse 99 01/25/2024 1:04 PM BACTERIOLOGY TEACHER Temperature 36.8 ??C (98.2 ??F) 01/25/2024 1:04 PM CS T Respiratory Rate 18 01/25/2024 1:04 PM BACTERIOLOGY TEACHER Oxygen Saturation 100% 01/25/2024 1:04 PM BACTERIOLOGY TEACHER Inhaled Oxygen Concentration - - Weight 88.3 kg (194 lb 9.6 oz) 01/25/2024 1:04 P M BACTERIOLOGY TEACHER Height 172.7 cm (5' 7.99 ) 01/25/2024 1:04 PM CS T Body Mass Index 29.6 01/25/2024 1:04 PM BACTERIOLOGY TEACHER Plan of Treatment Health Maintenance Due Date Last Done Comments Breast Cancer Screening-Mammogram 1975 Cervical Cancer Screening 1975 Colon Cancer Screening-Colonoscopy 1975 Depression Screening 1975 Hepatitis C Screening 1975 DTaP/Tdap/Td Vaccine (1 - Tdap) 1988 Hepatitis B Screening 08/17/1995 Regular Well Visit/Exam 18-64 08/17/1995 Covid-19 Vaccine (3 - 2023-2 5 season) 2023 10/01/2020, 09/03/2020 Influenza Vaccine (#1) 2023 , 12/13/2022 HPV Vaccines Aged Out No longer eligi ble based on patient's age to complete this topic Pneumococcal vaccine <65 Aged Out No longer eligible based on patient's age to complete this topic Medical Devices Implanted Type Area Cutter Brake Lining Device Identifier Shelf Expiration Date Model / Serial / Lot [employer] Implant Hsc Gel Breast Smooth Round Moderate 600cc [id number] - [id number] - [id number] Implanted:Qty: 1 on 02/09/2023 by Saira Camilo MD at [facility] Breast Right: Breast [employer] [id number] P / [id number] / Description:IMPLANT PAUSE PE RFORMED [employer] Implant Hsc Gel Breast Smooth Round Moderate 600cc [id number] - [id number] - [id number] Implanted:Qty: 1 on 02/09/2023 by Saira Camilo MD at [facility] Breast Left: Breast [employer] [id number] P / [id number] / Description:IMPLANT PAUSE PE RFORMED [employer] Graft Tissue Tailored Dermis Large 1mm Thick Cortiva 10.2x21.1cm [id number] - [id number] - [id number] Implanted:Qty: 1 on 02/09/2023 by Saira Camilo MD at [facility] Left: Breast [employer] 04/28/2027 [id number] / [id number] / [id number] [employer] Graft Tissue Tailored Dermis Large 1mm Thick Cortiva 10.2x21.1cm [id number] - [id number] - [id number] Implanted:Qty: 1 on 02/09/2023 by Saira Camilo MD at [facility] Right: Breast [employer] 03/30/2027 [id number] / [id number] / [id number] Te[employer] Inc Mesh Surg [place] 3d 21x7.5cm Soft Tissue [place] [id number] - [id number] Implanted:Qty: 1 on 02/09/2023 by Saira Camilo MD at [facility] Bilateral: Breast [employer] 10/19/2025 [id number] / / [id number] Description:Implant pause pe rformed Shashi [place] Mesh Surgical P4hb Synthetic [place] Galaflex Lite 17cm Soft Tissue Repair [id number] - [id number] Implanted:Qty: 1 on 02/09/2023 by Saira Camilo MD at [facility] Right: Breast Shashi [place] 12/29/2023 [id number] / / [id number] Description:Implant pause pe rformed Shashi [place] Mesh Surgical P4hb Synthetic [place] Galaflex Lite 17cm Soft Tissue Repair [id number] - [id number] Implanted:Qty: 1 on 02/09/2023 by Saira Camilo MD at [facility] Left: Breast Shashi [place] 12/29/2023 [id number] / / [id number] Description:Implant pause pe rformed Procedures Procedure Name Priority Date/Time Associated Diagnosis Comments SURGICAL PATHOLOGY Routine 01/25/2024 1:24 PM BACTERIOLOGY TEACHER Lesion of oropharynx CT SOFT TISSUE NECK W CONTRAST Schedule Routine, Read Routine (OP Routine) 01/12/2024 4:37 PM BACTERIOLOGY TEACHER Adenoid vegetations Chronic lymphadenitis from Last 3 Months Results * Surgical pathology (01/25/2024 1:24 PM BACTERIOLOGY TEACHER) Tissue (Pharynx, biopsy) 01/25/2024 1:24 PM BACTERIOLOGY TEACHER 01/25/2024 5:47 PM BACTERIOLOGY TEACHER Narrative PATHOLOGY [facility] - 01/28/2024 3:47 PM BACTERIOLOGY TEACHER EPIC results best viewed via link to PDF [facility] Lorraine Valdovinos Laboratory of Surgical [place] [address] Note to Patients: This report may contain [...] Gender: ??F : ??1975 (Age: 48) Address: ??[address] [place] [place], [place] ??[address] Hospital #: ??[id number] Taken:01/25/2024 Received:01/25/2024 Reported: 01/28/2024 Patient Type: [facility] SPECIMEN ?? Service: Laboratory Location: Physician(s): [...] Surgical Pathology and Flow Cytometry Departments at [facility] as part of an ongoing quality assurance qa lab technician program and in compliance with federally [...] Surgical Pathology and Flow Cytometry Departments of [facility]. ??It has not been cleared or approved by the U. S. Food and Drug Administration. IMAGES AND SCANNED DOCUMENTS, IF INCLUDED, ONLY VIEWABLE IN PDF VERSION OF REPORT Guy Gill MD LAB PATHOLOGY ORDERABLES Final Result PATHOLOGY [facility] 3rd Floor [place], [place] [phone] * CT Neck Soft Tissue W Contrast (01/12/2024 4:37 PM BACTERIOLOGY TEACHER) Anatomical Region Laterality Modality Head and Neck N/A Computed Tomogra phy 01/13/2024 9:54 AM BACTERIOLOGY TEACHER Impressions 01/13/2024 9:54 AM BACTERIOLOGY TEACHER 1. ??Prominent left level 2 cervical lymph node that could be reactive. Otherwise, no lymphadenopathy. 2. ??Continued clinical surveillance recommended. Follow-up imaging could be performed as clinically warranted. 3. ??Mild asymmetric thickening along the vallecular sinus, which is indeterminate. Consider direct visual inspection for further evaluation. Electronically signed by: Joby Burger M.D. Narrative 01/13/2024 9:[address] SOFT TISSUE NECK W CONTRAST 01/12/2024 [...] evaluation. Electronically signed by: Joby Burger M.D. Akosua-Kelly Patricia Cochran PLACEMENT INTERVIEWER IMG CT PROCEDURES Final Re sult from Last 3 Months Insurance [facility] OPEN ACCESS [facility] OPEN ACC[facility] Care Teams Oceanographer Geological Relationship Specialty Start Date End Date Daija Simpson PA PCP - General Physician Commercial Loan Processor 12/20/22
--- OUTSIDE RECORDS SUMMARY | 2024-03-28 14:55 | XMS_ITS ---
Author Organization [facility] [facility] Address [address] [address] Care Team Providers Care Fire Coordinator Name Role Phone IVAN LAMBERT Unavailable [phone] Bjorn Cochran Unavailable [phone] Reason For Referral Reason please send referral to Dr. Gill Diagnosis 1 Other chronic diseas es of tonsils and adenoids (J35.8) Diagnosis 2 Papillomavirus as th e cause of diseases classified elsewhere (B97.7) Diagnosis 3 Localized swelling, mass and lump, neck (R22.1) Diagnosis 4 Chronic lymphadeniti s, except mesenteric (I88.1) Referral Organization [facility] Referring Provider First Name Bjorn Referring Provider Last Name Sammie Referred Provider Specialty Oncology Referral Priority Routine REASON FOR VISIT Message Problems Problem Type SNOMED Code ICD Code Onset Dates Problem Status W/U Status Risk Notes Problem Chronic lymphadenitis (27534366) Chronic lymphadenitis, except mesenteric (I88.1) Active confirmed Problem Chronic disease of tonsils AND/OR adenoids (09601110) Other chronic diseases of tonsils and adenoids (J35.8) Active confirmed Encounters Encounter Location Date Provider Diagnosis [facility] [address] [place] [address] 01/05/2024 Bjorn Cochran Chronic lymphadeniti s, except mesenteric I88.1 ; Localized swelling, mass and lump, neck R22.1 ; Papillomavirus as the cause of diseases classified elsewhere B97.7 and Other chronic diseases of tonsils and adenoids J35.8 Assessments Encounter Date Diagnosis (ICD Code) Assessment Notes Treatment Notes Treatment Clinical Notes Section Notes 01/05/2024 Chronic lymphadenitis, except mesenteric (ICD-10 - I88.1) 01/05/2024 Localized swelling, mass and lump, neck (ICD-10 - R22.1) 01/05/2024 Papillomavirus as the cause of diseases classified elsewhere (ICD-10 - B97.7) 01/05/2024 Other chronic diseases of tonsils and adenoids (ICD-10 - J35.8) 01/05/2024 Other Assessment and Plan: 1. Left submandibular and cervical lymph node swelling: - Obtain a CT scan of the soft tissue of the neck with and without contrast to further evaluate the enlarged lymph node. - Refer the patient to head and neck oncology for further evaluation and consultation, considering her extensive medical history. 2. History of HPV infection: - Encourage the patient to follow up with her primary care provider or lead advisor for regular HPV screening and monitoring. 3. History of breast cancer with bilateral mastectomy: - Ensure the patient is following up with her oncologist for regular surveillance and monitoring of her breast cancer status. 4. Recent tonsillitis and tonsil stones: - Recommend the patient to maintain good oral hygiene and consider a follow-up with an retail sales director if symptoms persist or worsen. 5. No recent fevers, chills, or trouble swallowing: - Continue to monitor for any new or worsening symptoms and advise the patient to report any changes to her healthcare provider. Dear Bruna, Thank you for visiting my office today and for your proactive approach to your health concerns. I appreciate your commitment to understanding and managing your health effectively. Here is a summary of the weller instructions and next steps we discussed during your visit: - CT Scan: Schedule a CT scan of the soft tissue of your neck, both with and without contrast, to further evaluate the enlarged lymph node.- Specialist Consultation: Arrange a consultation with a head and neck oncology social worker for a comprehensive evaluation, given your medical history and recent symptoms.- Follow-Up: Please ensure to follow up with our office after your tests and consultation so we can review the results together and decide on any further treatment or actions needed. Thank you once again for your visit, and please do not hesitate to reach out if you have any questions or need further assistance before our next appointment. Best regards, Akosua-Kelly CochranKassy tello Plan Of Treatment Treatment Notes Assessment Notes Other Assessment and Plan: 1. Left submandibular and cervical lymph node swelling: - Obtain a CT scan of the soft tissue of the neck with and without contrast to further evaluate the enlarged lymph node. - Refer the patient to head and neck oncology for further evaluation and consultation, considering her extensive medical history. 2. History of HPV infection: - Encourage the patient to follow up with her primary care provider or lead advisor for regular HPV screening and monitoring. 3. History of breast cancer with bilateral mastectomy: - Ensure the patient is following up with her oncologist for regular surveillance and monitoring of her breast cancer status. 4. Recent tonsillitis and tonsil stones: - Recommend the patient to maintain good oral hygiene and consider a follow-up with an retail sales director if symptoms persist or worsen. 5. No recent fevers, chills, or trouble swallowing: - Continue to monitor for any new or worsening symptoms and advise the patient to report any changes to her healthcare provider. Dear Bruna, Thank you for visiting my office today and for your proactive approach to your health concerns. I appreciate your commitment to understanding and managing your health effectively. Here is a summary of the weller instructions and next steps we discussed during your visit: - CT Scan: Schedule a CT scan of the soft tissue of your neck, both with and without contrast, to further evaluate the enlarged lymph node.- Specialist Consultation: Arrange a consultation with a head and neck oncology social worker for a comprehensive evaluation, given your medical history and recent symptoms.- Follow-Up: Please ensure to follow up with our office after your tests and consultation so we can review the results together and decide on any further treatment or actions needed. Thank you once again for your visit, and please do not hesitate to reach out if you have any questions or need further assistance before our next appointment. Best regards, Kassy Gage Pending Test Test Name Order Date CT Neck: soft tissues 01/05/2024 Referrals Referral Date Details 01/05/2024 01/05/2024, please s end referral to Dr. Gill Progress Notes * Rashaun HOLLANDOB:1975 ([age] yo F)Acc No.[id number]:01/05/2024 Patient:?Bruna HOLLAND :1975???Age:48 Y???Sex:Female Address:[address] [place] [address] Subjective: * Chief Complaints: * ???Message * HPI: ???Constitutional:? A 48-year-old female presents to the office with concerns over left submandibular and cervical lymph node swelling. She reports a history of an enlarged lymph node just below her left jaw, which has been previously evaluated with ultrasound, revealing a 2.5 cm enlarged lymph node. The patient notes that the lymph node has recently increased in size and become tender to touch. The patient also mentions a recent episode of significant tonsillitis, during which her left tonsils were swollen, causing deviation of her uvula to the left and the presence of tonsil stones. She has a history of HPV and expresses concern about a possible HPV infection. Additionally, the patient has a history of breast cancer diagnosis one year ago, for which she underwent a bilateral mastectomy. She denies experiencing any recent fevers, chills, or trouble swallowing. * ROS:?HEMATOLOGY/LYMPH:?swollen glands?yes.?fatigue?yes.?UROLOGY:?no?difficulty urinating.?no?blood in urine.?no?urinary urgency.?no?frequent urination.?no?urinary incontinence.?CONSTITUTIONAL:?no?weight gain.?no?loss of appetite.?no?fever.?no?weakness.?ENDOCRINOLOGY:?fatigue?yes.?no?excessive sweating.?no?excessive thirst.?no?sleep disturbance.?no?cold intolerance.?no?heat intolerence.?thyroid disease?yes.?NEUROLOGY:?no?headache.?no?tingling numbness.?no?seizures.?no?memory loss.?no?dizziness.?RESPIRATORY:?no?shortness of breath.?no?chest pain.?no?wheezing.?no?asthma.? * Medical History:? * Surgical History:?bilateral mastectomy 2022 * Hospitalization/Major Diagno stic Procedure:? * Social History:?Smoking: no? .?Recreational drug use: no. Alcohol: yes, occasionally. * Medications:? * Allergies:?no[Allergies Veri fied] Objective: * Vitals:? * Examination: ???General Examination: ?General?normal, well nourished and hydrated, pleasant.?HEENT:?TM's normal, left tonsil slightly enlarged, no PND.?Neck, thyroid :?supple, palpable left submandibular mass noted with mild tenderness to palpation.?Heart:?BP wnl, RSR, normal S1S2.?Lungs:?normal, clear to auscultation.?Neurologic exam:?unremarkable.? * Physical Examination:? Assessment: * Assessment: 1.?Chronic lymphadenitis, ex cept mesenteric - I88.1 (Primary)???2.?Localized swelling, mass and lump, neck - R22.1???3.?Papillomavirus as the cause of diseases classified elsewhere - B97.7???4.?Other chronic diseases of tonsils and adenoids - J35.8??? Plan: * Treatment: ? Referral To:Oncology ?Reason:please send referral to Dr. Gill 2.?Localized swelling, mass and lump, neck?Imaging: CT Neck: soft tissues* with and without contrast ? Referral To:Oncology ?Reason:please send referral to Dr. Gill 3.?Papillomavirus as the cause of diseases classified elsewhere?Imaging: CT Neck: soft tissues* with and without contrast ? Referral To:Oncology ?Reason:please send referral to Dr. Gill 4.?Other chronic diseases of tonsils and adenoids?Imaging: CT Neck: soft tissues* with and without contrast ? Referral To:Oncology ?Reason:please send referral to Dr. Gill 5.?Others? Notes: Assessment and Plan: 1. Left submandibular and cervical lymph node swelling: - Obtain a CT scan of the soft tissue of the neck with and without contrast to further evaluate the enlarged lymph node. - Refer the patient tohead and neck oncology for further evaluation and consultation, considering her extensive medical history. 2. History of HPV infection: - Encourage the patient to follow up with her primary care provider orgynecologist for regular HPV screening and monitoring. 3. History of breast cancer with bilateral mastectomy: - Ensure the patient is following up with her oncologist for regular surveillance and monitoring of her breast cancer status. 4. Recent tonsillitis and tonsil stones: - Recommend the patient to maintain good oral hygiene and consider a follow-up with an retail sales director if symptoms persist or worsen. 5. No recent fevers, chills, or trouble swallowing: - Continue to monitor for any new or worsening symptoms and advise the patient to report any changes to her healthcare provider. Dear Bruna, Thank you for visiting my office today and for your proactive approach to your health concerns. I appreciate your commitment to understanding and managing your health effectively. Here is a summary of the weller instructions and next steps we discussed during your visit: - CT Scan: Schedule a CT scan of the soft tissue of your neck, both with and without contrast, to further evaluate the enlarged lymph node.- Specialist Consultation: Arrange a consultation with a head and neck oncology social worker for a comprehensive evaluation, given your medical history and recentsymptoms.- Follow-Up: Please ensure to follow up with our office after your tests and consultation so we can review the results together and decide on any further treatment or actions needed. Thank you once again for your visit, and please do not hesitate to reach out if you have any questions or need further assistance before our next appointment. Best regards, Madhavi Cochran, [facility] Medicine?? * Procedure Codes:? * true * Date:? Generated for Tommy cruz/Dimitry/eTransmitting on:?03/28/2024 02:55 PM [employer] History and Physical Notes * Examination Category Sub-Category Detail Notes Category Not es General Examination HEENT: TM's normal, left tonsil slightly enlarged, no PND Neck, thyroid : supple, palpable lef t submandibular mass noted with mild tenderness to palpation Heart: BP wnl, RSR, normal S1S2 Lungs: normal, clear to aus cultation General normal, well nourish ed and hydrated, pleasant Neurologic exam: unremarkable Consultation Request Notes Referral Date Referring Provider Referred Provider Not es 01/05/2024 Bjorn Cochran , please send ashanti mcgee to Dr. Gill
--- OUTSIDE RECORDS SUMMARY | 2024-03-28 14:55 | XMS_ITS | Patient Health Record ---
Author Organization [facility] Address [address] [address] Care Team Providers Care Blow Pit Helper Name Role Phone IVAN LAMBERT Unavailable [phone] CochranBjorn tello Unavailable [phone] Results Component Value Reference Range Notes COMPREHENSIVE METABOLIC PANE L Reviewed date:03/12/2024 03:48:02 PM Interpretation: Performing Lab:[place], [facility], [address] [place], [address] ShailaCheryl Shah MD Notes/Report: FASTING: YES GLUCOSE 87 65-99 mg/dL Fasting reference interval UREA NITROGEN (BUN) 15 7-25 mg/dL CREATININE 0.98 0.50-0.99 mg/dL EGFR 72 > OR = 60 mL/min/1.73m2 BUN/CREATININE RATIO SEE NOTE: 6-22 (calc) Not Reported: BUN and Creatinine are within reference range. SODIUM 138 135-146 mmol/L POTASSIUM 4.3 3.5-5.3 mmol/L CHLORIDE 105 98-110 mmol/L CARBON DIOXIDE 23 20-32 mmol/L CALCIUM 9.3 8.6-10.2 mg/dL PROTEIN, TOTAL 7.4 6.1-8.1 g/dL ALBUMIN 4.5 3.6-5.1 g/dL GLOBULIN 2.9 1.9-3.7 g/dL (calc) ALBUMIN/GLOBULIN RATIO 1.6 1.0-2.5 (calc) BILIRUBIN, TOTAL 1.8 0.2-1.2 mg/dL ALKALINE PHOSPHATASE 58 31-125 U/L AST 17 10-35 U/L ALT 16 6-29 U/L VITAMIN D, 25-HYDROXY, LC/MS /MS Reviewed date:03/12/2024 03:48:02 PM Interpretation: Performing Lab:[facility], [address] [place], [address] Sharon Shah MD Notes/Report: FASTING: YES VITAMIN D,25-OH,TOTAL,IA 26 30-100 ng/mL Vitamin D Status 25-OH Vitamin D: Deficiency: <20 ng/mL Insufficiency: 20 - 29 ng/mL Optimal: > or = 30 ng/mL For 25-OH Vitamin D testing on patients on D2-supplementation and patients for whom quantitation of D2 and D3 fractions is required, the QuestAssureD(TM) 25-OH VIT D, (D2,D3), LC/MS/MS is recommended: order code 26113 (patients >2yrs). See Note 1 Note 1 For additional information, please refer to http://education.[employer]/faq/QPI169 (This link is being provided for informational/ educational purposes only.) T3, FREE Reviewed date:03/12/2024 03:48:03 PM Interpretation: Performing Lab:[facility], [address] [place], [address] Sharon Shah MD Notes/Report: FASTING: YES T3, FREE 3.2 2.3-4.2 pg/mL HEMOGLOBIN A1c Reviewed date:03/12/2024 03:48:03 PM Interpretation: Performing Lab:[facility], [address] [place], [address] Sharon Shah MD Notes/Report: FASTING: YES HEMOGLOBIN A1c 5.4 <5.7 % of total Hgb For the purpose of screening for the presence of diabetes: <5.7% Consistent with the absence of diabetes 5.7-6.4% Consistent with increased risk for diabetes (prediabetes) > or =6.5% Consistent with diabetes This assay result is consistent with a decreased risk of diabetes. Currently, no consensus exists regarding use of hemoglobin A1c for diagnosis of diabetes in children. According to [place] Diabetes Association (ADA) guidelines, hemoglobin A1c <7.0% represents optimal control in non- diabetic patients. Different metrics may apply to specific patient populations. Standards of Medical Care in Diabetes(ADA). INSULIN Reviewed date:03/12/2024 03:48:03 PM Interpretation: Performing Lab:[facility], [address] [place], [address] Sharon Shah MD Notes/Report: FASTING: YES INSULIN 8.3 Reference Range < or = 18.4 Risk: Optimal < or = 18.4 Moderate NA High >18.4 Adult cardiovascular event risk category cut points (optimal, moderate, high) are based on Insulin Reference Interval studies performed at [facility] in 2021. MAGNESIUM Reviewed date:03/12/2024 03:48:03 PM Interpretation: Performing Lab:[facility], [address] [place], [address] Sharon Shah MD Notes/Report: FASTING: YES MAGNESIUM 2.0 1.5-2.5 mg/dL CBC (INCLUDES DIFF/PLT) Reviewed date:03/12/2024 03:48:03 PM Interpretation: Performing Lab:[facility], [address] [place], [address] Sharon Shah MD Notes/Report: FASTING: YES WHITE BLOOD CELL COUNT 7.7 3.8-10.8 Thousand/ uL RED BLOOD CELL COUNT 4.71 3.80-5.10 Million/uL HEMOGLOBIN 14.1 11.7-15.5 g/dL HEMATOCRIT 43.3 35.0-45.0 % MCV 91.9 80.0-100.0 fL MCH 29.9 27.0-33.0 pg MCHC 32.6 32.0-36.0 g/dL For adults, a slight decrease in the calculated MCHC value (in the range of 30 to 32 g/dL) is most likely not clinically significant; however, it should be interpreted with caution in correlation with other red cell parameters and the patient's clinical condition. RDW 12.3 11.0-15.0 % PLATELET COUNT 288 140-400 Thousand/uL MPV 11.3 7.5-12.5 fL ABSOLUTE NEUTROPHILS 4997 1486-4127 cells/uL ABSOLUTE LYMPHOCYTES 7332 831-8052 cells/uL ABSOLUTE MONOCYTES 554 200-950 cells/uL ABSOLUTE EOSINOPHILS 131 15-500 cells/uL ABSOLUTE BASOPHILS 69 0-200 cells/uL NEUTROPHILS 64.9 LYMPHOCYTES 25.3 MONOCYTES 7.2 EOSINOPHILS 1.7 BASOPHILS 0.9 VITAMIN B12/FOLATE, SERUM PA [facility] Reviewed date:03/12/2024 03:48:03 PM Interpretation: Performing Lab:[facility], [facility], [address], [place], [address] ShailaCheryl Shah MD Notes/Report: FASTING: YES VITAMIN B12 740 794-9956 pg/mL FOLATE, SERUM 16.9 Reference Range Low: <3.4 Borderline: 3.4-5.4 Normal: >5.4 T4, FREE Reviewed date:03/12/2024 03:48:03 PM Interpretation: Performing Lab:[facility], [address], [place], [address] Sharon Shah MD Notes/Report: FASTING: YES T4, FREE 1.1 0.8-1.8 ng/dL TSH Reviewed date:03/12/2024 03:48:03 PM Interpretation: Performing Lab:[facility], [address], [place], [address] Sharon Shah MD Notes/Report: FASTING: YES TSH 0.78 Reference Range > or = 20 Years 0.40-4.50 Ranges First trimester 0.26-2.66 Second trimester 0.55-2.73 Third trimester 0.43-2.91 Reason For Referral Reason please send referral to Dr. Gill Diagnosis 1 Other chronic diseas es of tonsils and adenoids (J35.8) Diagnosis 2 Papillomavirus as th e cause of diseases classified elsewhere (B97.7) Diagnosis 3 Localized swelling, mass and lump, neck (R22.1) Diagnosis 4 Chronic lymphadeniti s, except mesenteric (I88.1) Referral Organization [facility] - Bruna Maciel Referring Provider First Name Bjorn Referring Provider Last Name Sammie Referred Provider Specialty Oncology Referral Priority Routine Medications Medication SIG (Take, Route, Fr equency, Duration) Notes Start Date End Date Status Sertraline HCl 25 MG 1 tablet Orally Onc e a day for 90 days 03/14/2024 Active Problems Problem Type SNOMED Code ICD Code Onset Dates Problem Status W/U Status Risk Notes Problem Chronic lymphadenitis (21312580) Chronic lymphadenitis, except mesenteric (I88.1) Active confirmed Problem Chronic disease of tonsils AND/OR adenoids (70271468) Other chronic diseases of tonsils and adenoids (J35.8) Active confirmed Encounters Encounter Location Date Provider Diagnosis Sequence [id number] [place] [address] 01/05/2024 LeAdali Cochran Chronic lymphadeniti s, except mesenteric I88.1 ; Localized swelling, mass and lump, neck R22.1 ; Papillomavirus as the cause of diseases classified elsewhere B97.7 and Other chronic diseases of tonsils and adenoids J35.8 Sequence [id number] [place] [address] 01/10/2024 LeaAjohn Devies Chronic lymphadeniti s, except mesenteric I88.1 and Other chronic diseases of tonsils and adenoids J35.8 Sequence [id number] [place] [address] 03/14/2024 IVAN LAMBERT Assessments Encounter Date Diagnosis (ICD Code) Assessment Notes Treatment Notes Treatment Clinical Notes Section Notes 01/05/2024 Chronic lymphadenitis, except mesenteric (ICD-10 - I88.1) 01/05/2024 Localized swelling, mass and lump, neck (ICD-10 - R22.1) 01/10/2024 Chronic lymphadenitis, except mesenteric (ICD-10 - I88.1) 01/10/2024 Other chronic diseases of tonsils and adenoids (ICD-10 - J35.8) 01/05/2024 Papillomavirus as the cause of diseases [...] up with her primary care provider or nuclear medicine chief technologist for regular HPV screening and monitoring. 3. History of breast cancer with bilateral mastectomy: - Ensure the patient is following up with her oncologist for regular surveillance and monitoring of her breast cancer status. 4. Recent tonsillitis and tonsil stones: - Recommend the patient to maintain good oral hygiene and consider a follow-up with an grand scribe if symptoms persist or worsen. 5. No [...] a consultation with a head and neck account review specialist for a comprehensive evaluation, given your medical [...] assistance before our next appointment. Best regards, [facility] Pending Test Test Name Order Date CT Neck: soft tissues 01/05/2024 CT NECK SOFT TISSUE WITH CONTRAST 2023 Insurance Providers Payer Name Payer Address Payer Phone Subscriber Number Group Number Insured Name Patient Relationship to Insured Coverage Start Date Coverage End Date Roshan [address] [place] [phone] [id number] Bruna Maciel Self - patient is the insured Medical (General) History Medical History History ICD Code breast cancer kendy's prediabetes thyroid nodule Surgical History Surgery Date(Month/Year) bilateral mastectomy 2022
--- OUTSIDE RECORDS SUMMARY | 2024-03-28 14:55 | XMS_ITS | Data Portability ---
Author Organization [place] - [facility] [employer], Main Office Address [address] [place] [address] Assessment No assessment recorded. Plan of Treatment Reminders Order Date Submit Date Provider Last Modified By Organization Details Last Modified Time Details Appointments None recorded. Lab testosteron e, free + total, serum 2022 023 DWAYNE Not available 3 17:48:05 dhea-sulfat e, serum 2022 023 [facility] 146 Not available 16:44:46 insulin, serum 2022 023 [place] 146 Not available 3 16:44:46 dihydrotest osterone (dht), serum 2022 023 [facility] 146 Not available 16:44:47 CMP, serum or plasma 2022 023 [facility] 146 Not available 3 16:44:47 CBC w/ auto diff 2022 023 [facility] 146 Not available 3 16:44:48 vitamin B12 + folate, serum or blood 2022 023 [place] 146 Not available 3 16:44:48 magnesium, serum or plasma 2022 023 [place] 146 Not available 3 16:44:48 vitamin D, 25-hydroxy, total, serum 2022 023 [place] 146 Not available 3 16:44:48 TSH + free T4, serum 2022 023 [place] 146 Not available 3 16:44:47 T3, free, serum or plasma 2022 023 [facility] 146 Not available 3 16:44:47 thyroid peroxidase (tpo) Ab, serum 2022 023 [facility] 146 Not available 3 16:44:47 thyroglobul in Ab, serum 2022 023 DWAYNE Not available 3 10:32:31 lipid panel, serum 2022 023 DWAYNE Not available 3 15:44:49 HbA1c (hemoglobin A1c), [facility] Not available 3 16:44:47 Referral None recorded. Procedures None recorded. Surgeries None recorded. Imaging None recorded. Medication Orders spironolact one 100 mg tablet 2022 023 [id number], [address] [facility], [place], [place], [id number], 13:19:06 Patient TargetsNo targets recorded. Patient InstructionsNo instructions recorded. Reason for Referral None Reported. Results Created Date Observation Date Name Description Value Unit Range Abnormal Flag Note LastModifiedBy Organization Detail LastModifiedTime 01/26/20 23 01/25/2023 COLOG UARD cologuard result reportable POSITI VE negati ve abnormal POSIT BASHIR TEST RESUL T. A posit bashir Colog uard resul t shoul d be follo wed with a colon oscop y or visua l exami natio n of the colon . The todd l value (refe rence range ) for this assay is negat bashir. TEST DESCR IPTIO N: Dimmitt site algor ithmi c candy sis of stool DNA-b iofernandez kerceleste with hemog lobin immun oassa y. Quant itati ve value s of indiv idual bioma rkers are not repor table and are not assoc iated with indiv idual bioma rker resul t refer ence range s. Colog uard is inten ded for color ectal cance r scree goldie of adult s of eithe r sex, 45 years or older , who are at [facility] for color ectal cance r (CRC) . Colog uard has been appro elroy for use by the U.[place]. FDA. The perfo rmanc e of Colog uard was estab lishe d in a cross secti onal study of [facility] adult s aged 50-84 . Colog uard perfo rmanc e in patie nts ages 45 to 49 years was estim ated by jaclyn-g stephanie candy sis of near- age group s. Colon oscop ies perfo rmed for a posit bashir resul t may find as the most clini christine signi fickrystin t lesmatthew n: color ectal cance r [4.0% ], advan soraida adeno ma (incl uding sessi le renee niko polyp s great er than or equal to 1cm diame ter) [20%] or non- advan soraida adeno ma [31%] ; or no color ectal neopl jenaro [45%] . These estim ates are deriv ed from a prosp ectiv e cross -sect ional scree goldie study of 0 indiv idual s at [facility] risk for color ectal cance r who were scree javier with both Colog uard and colon oscop y. (Rosaura Richardson et al, N Engl J Med 2014; 370(1 4):12 86-12 97.) Colog uard may produ ce a false negat bashir or false posit bashir resul t (no color ectal cance r or preca ncero us polyp prese nt at colon oscop y follo w up). A negat bashir Colog uard test resul t does not guara ntee the absen ce of CRC or advan soraida adeno ma (pre- cance r). The curre nt Colog uard scree goldie inter irish is every 3 years . (Amer ican Cance r Socie ty and U.S. Multi -Soci ety Task Force ). Colog uard perfo rmanc e data in a 0 patie nt pivot al study using colon oscop y as the refer ence metho d can be acces sed at the follo wing locat ion: www.e xactl abs.c om/re sults . Addit ional descr iptio n of the Colog uard test proce ss, warni ngs and preca ution s can be found at www.c zhaneogu onel.c om. Not Available [facility] (Cologuard Orders Only) [address], [place], [address], 02/04/2023 10:50:02 11/14/19 22 11/13/2021 XR, chest , 2 view No observ ation record ed. [id number] [facility] [address] [place], [address], 04/28/2022 20:02:08 12/31/19 22 12/30/2021 US, neck, soft tissu e No observ ation record ed. [id number] Not Available 04/28/2022 20:02:08 12/31/19 22 12/30/2021 MAMMO , scree goldie, digit al, bilat eral No observ ation record ed. [id number] [facility] [address] [place], [address], 04/28/2022 20:02:08 12/31/19 22 12/30/2021 US, gallb ladde r No observ ation record ed. [id number] Not Available 04/28/2022 20:02:08 12/14/19 23 12/06/2022 MAMMO , diagn ostic , digit al, bilat eral No observ ation record ed. [email or web address] [facility] [address], [place], [address], 12/13/2022 18:13:05 12/15/19 23 12/14/2022 stere otact ic breas t biops y (PROC ) No observ ation record ed. [email or web address] [place] [address] (Imaging) [address], [place], [address], 03/02/2023 23:24:23 12/31/19 23 12/06/2022 MAMMO , diagn ostic , digit al, bilat eral No observ ation record ed. [email or web address] [facility] [address], [place], [address], 01/03/2023 17:12:49 Result Notes None recorded. Problems Name Problem SNOMED Code Status Onset Date Resolution Date Notes Provider Name and Address Organization Details Recorded Time Gallstone 738795411 Active 2021 Not Available [facility] 3 20:01:16 Neck swelling 128910224 Active 2021 Not Available [facility] 3 20:01:17 Hyperlipid emia 29061218 Active 2021 Not Available [facility] 3 20:01:17 Female hirsutism 70027265 Active 2022 TAJ Bryant [address], [place], [address] , [facility] 3 13:13:52 Loss of hair 530951655 Active 2022 TAJ Bryant [address], [place], [address] , [employer] 3 13:15:36 Elevated blood-pres sure reading without diagnosis of hypertensi on 693187023 Active 2022 TAJ Bryant [address], [place], [address] , [employer] 3 13:16:46 Allergy to food 583810486 Active 2022 TAJ Bryant [address], [place], [address] , [facility] [employer] 3 12:45:05 Lesion of breast 621925899 Active 2022 TAJ Bryant [address], [place], [address] , [facility] 3 08:34:08 Eruption 382187161 Active 2022 TAJ Bryant [address], [place], [address] , [facility] 3 08:54:30 Localized eruption of skin 878844140 Active 2022 TAJ Bryant [address], [place], [address] , [facility] 3 08:54:33 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 2752992714694 9106 Active 2022 TAJ Bryant [address], [place], [address] , [facility] 3 13:39:59 Microcalci fications present in ductal carcinoma in situ 863681631 Active 2022 TAJ Bryant [address], [place], [address] , [facility] 3 12:09:30 Colorectal cancer detected by DNA-based stool screening 455997980 Active 2022 TAJ Bryant [address], [place], [address] , [facility] 3 11:35:50 Problem Notes None recorded. Procedures Surgical History Date Name Laterality Status Provider Name and Address Organization Details Recorded Time 7 Knee Surgery completed Not Available [facility] 023 20:00:52 Imaging Results Imaging Date Name Status LastModified by Organization Details LastModified Time 11/13/2021 XR, chest, 2 view completed [id number] [facility] [address], [place], [address], 04/28/2022 20:02:08 12/30/2021 US, neck, soft tissue completed [id number] Information not available 04/28/2022 20:02:08 12/30/2021 MAMMO, screening, digital, bilateral completed [id number] [facility] [address] [facility], [place], [address], 04/28/2022 20:02:08 12/30/2021 US, gallbladder completed MIGRATION.03 [id number] Information not available 04/28/2022 20:02:08 12/06/2022 MAMMO, diagnostic, digital, bilateral completed [email or web address] [facility] [address], [place], [address], 12/13/2022 18:13:05 12/14/2022 stereotactic breast biopsy (PROC) completed [address] (Imaging) [address] [place] [address] [address], [place], [address], 03/02/2023 23:24:23 12/06/2022 MAMMO, diagnostic, digital, bilateral completed [facility] [address], [place], [address], 01/03/2023 17:12:49 Procedure Notes None recorded. Medical Equipment None Reported. Medications Name Sig Start Date Stop Date Status Note LastModified by Organization Details LastModified Time doxycycli ne hyclate 100 mg capsule Take 1 capsule twice a day by oral route. active Not Available Not Available No t Available azithromy manuel 250 mg tablet TAKE DIRECTED 08/26 completed Not Available Not Available Not Available spironola ctone 100 mg tablet Take 1 tablet every day by oral route. 2022 active Not Available Not Available Not Avai lable chlorthal idone 25 mg tablet Take 1 tablet every day by oral route in the morning. active Not Available Not Available No t Available propranol ol 10 mg tablet TAKE 1 TABLET BY MOUTH THREE TIMES DAILY NEEDED active Not Available Not Available No t Available amoxicill in 875 mg tablet TAKE 1 TABLET BY MOUTH TWICE DAILY 08/26 completed Not Available Not Available Not Available benzonata te 100 mg capsule TAKE 1 CAPSULE BY MOUTH EVERY 8 HOURS NEEDED 08/26 completed Not Available Not Available Not Available nystatin 100,000 unit/gram topical cream APPLY TOPICALL Y TO THE AFFECTED AREA TWICE DAILY active Not Available Not Available No t Available sertralin e 25 mg tablet TAKE 1 TABLET BY MOUTH DAILY active taking 50mg Not Available Not Available Not Available epinephri ne 0.3 mg/0.3 mL injection , auto-inje ctor use as directed PRN food allergy active Not Available Not Available No t Available Ativan 0.5 mg tablet Take 1 tablet twice a day by oral route as needed. 03/04 completed for anxiety Not Available Not Available Not Available propranol ol 20 mg tablet PRN active Not Available Not Available Not Available metformin ER 500 mg tablet,ex tended release 24 hr TAKE 1 TABLET BY MOUTH EVERY DAY WITH DINNER active Not Available Not Available No t Available spironola ctone 50 mg tablet TAKE 1 TABLET BY MOUTH EVERY DAY 08/26 completed Not Available Not Available Not Available Vitamin D3 takes 4000IU daily 2020 active Not Available Not Available Not Avai lable Volnea (28) 0.15 mg-0.02 mg (21)/0.01 mg (5) tablet TAKE 1 TABLET BY MOUTH DAILY 12/02 completed Not Available Not Available Not Available Paxlovid 300 mg (150 mg x 2)-100 mg tablets in a dose pack TK 2 NIRMATRE LVIR TS AND 1 RITONAVI R T TOGETHER PO BID FOR 5 DAYS BID FOR 5 DAYS 08/26 completed Not Available Not Available Not Available Vitals Date Recorded Oxygen saturation Oxygen saturation in Arterial blood by Pulse oximetry Heart rate Respiratory rate Body temperature Systolic blood pressure Diastolic blood pressure Provider Name and Address Organization Details Last Updated DateTime 2 98 % 98 % 110 /min 16 /min 98.2 [degF] 130 mm[Hg] 90 mm[Hg] Not Available [facility] 3 20:01:13 Date Recorded Body temperature Body height Body weight Oxygen saturation Oxygen saturation in Arterial blood by Pulse oximetry Heart rate Provider Name and Address Organization Details Last Updated DateTime 3 98.6 [degF] 172.72 cm 80042.5 1 g 98 % 98 % 82 /min Sharon Macedo RN [place] [facility] [employer] 12:48:05 Date Recorded Body mass index (BMI) Systolic blood pressure Diastolic blood pressure Provider Name and Address Organization Details Last Updated DateTime 08/26/2022 29.6 kg/m2 130 mm[Hg] 90 mm[Hg] TAJ Bryant [address] [facility], [facility] [address], [place], [address], [place] [facility] 08/26/2022 19:19:59 Social History Question Answer Notes LastModified by Organization Details LastModified Time Tobacco Smoking Status Never Smoker Not Available [facility] 04/28/2022 20:00:49 Do You Have An Advance Directive? Yes MIGRATION.165 [id number] Information not available 04/28/2022 What Is Your Level Of Alcohol Consumption? Moderate MIGRATION.449 [id number] Information not available 04/28/2022 What Is Your Level Of Caffeine Consumption? Heavy MIGRATION.360 [id number] Information not available 04/28/2022 What Type Of Diet Are You Following? REGULAR MIGRATION.451 [id number] Information not available 04/28/2022 What Is The Highest Grade Or Level Of School You Have Completed Or The Highest Degree You Have Received? 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 No MIGRATION.085 [id number] Information not available 04/28/2022 Do You Have A Humidifier? Yes MIGRATION.605 [id number] Information not available 04/28/2022 Do You Use Insect Repellent Routinely? Yes MIGRATION.358 [id number] Information not available 04/28/2022 Do You Have Moisture Problems In Your Home? No MIGRATION.069 [id number] Information not available 04/28/2022 What Is Your Relationship Status? MIGRATION.546 [id number] Information not available 04/28/2022 Do You Have Smoke And Carbon Monoxide Detectors In Your Home? Yes MIGRATION.396 [id number] Information not available 04/28/2022 Are You Passively Exposed To Smoke? No MIGRATION.671 [id number] Information not available 04/28/2022 Are There Any Smokers In Your House? No MIGRATION.631 [id number] Information not available 04/28/2022 Do You Feel Stressed (tense, Restless, Nervous, Or Anxious, Or Unable To Sleep At Night)? [id number] MIGRATION.465 [id number] Information not available 04/28/2022 Do You Use Sunscreen Routinely? Yes MIGRATION.017 [id number] Information not available 04/28/2022 What Type Of Noise Exposure Are You Exposed To? NoExposureToExcessiveNoise MIGRATION.728 [id number] Information not available 04/28/2022 Are You Currently In School? No MIGRATION.138 [id number] Information not available 04/28/2022 Sex: Unknown Functional Status Question Answer Note LastModified by Organizat ion Details LastModified Time What is your exercise level? Moderate [id number] Information not available 04/28/2022 Mental Status None recorded. Family History Relationship Description Onset Age of this Age Resolved Age Notes LastModified by Organization Details LastModified Time Maternal Aunt Osteopenia MIGRATI ON.701 [id number] Not available 04/28/2022 20:00:53 Father Small cell carcinoma of lung 60 MIGRATION.144 [id number] Not available 04/28/2022 20:00:53 Medical History No medical history recorded. Gynecological HistoryNo gynecological history recorded. Obstetrics History GPAL:G 0 P 0 0 0 0 Past Encounters Encounter ID Performer Location Encounter Start Date Encounter Closed Date Diagnosis/Indication Diagnosis SNOMED-CT Code Diagnosis ICD10 Code Diagnosis Note [id number] [facility] [place] [address] [address], [address] [place] [address] 12/02/2021 00:00:00 12/28/2021 15:16:59 [id number] TAJ Bryant [facility] [place] [address] [address], [address] [place] [address] 08/26/2022 12:31:34 08/26/2022 13:18:00 Female hirsutism 23896387 L68.0 screening testostero ne , dhea, insulin and dht labs ordered Cholesterol screening 27 6618164 Z13.220 screening lipids due Diabetes m ellitus screening 058995586 Z13.1 screening diabetes ordered Thyroid di sorder screening 380738625 Z13.29 TFT panel due Long-term drug therapy 329174835 Z79.899 Loss of hair 211281422 L 65.9 screening labs for reported hair loss Elevated blood-pressure reading without diagnosis of hypertension 373271659 R03.0 start spironolac tone 100mg daily. Health Concerns Section Related Observation LastModified by Organization Detai ls LastModified Time None Recorded Concern Status LastModified by Organization Details LastModified Time None Recorded Advance Directives Directive Y: Payers Encounter Date Sequence Insurance Name Policy Number Policy Mart Covered Member ID Mart Member ID Guarantor Name 08/26/2022 1 [employer] - [facility] (PP[place]) [id number] Bruna Maciel [id number] Bruna Maciel Notes Date Note Type Note Provider Name and Address Organization Details Recorded Time 2 text/html Generic HPI TemplateReported bypatient.Notes:pt here for annual wellness exam and labs. Not Available [employer] 12/28/2021 15:16:59 3 text/html HypertensionReported bypatient.Quality:pressur e Onset/Timing:gradual onset Alleviating Factors:relieved with rest Associated Symptoms:no shortness of breath; no fatigue; no decline in exercise capacity; no snoring;palpitationsNotes :headache TAJ Bryant [address] [facility], [facility] [address], [place], [address], [place] [employer] 08/26/2022 19:22:41 OBGyn Episode No OBEpisode recorded.
--- OUTSIDE RECORDS SUMMARY | 2024-03-28 14:57 | XMS_ITS | CONTINUITY OF CARE DOCUMENT ---
Author Name star graves Address Unknown Organization [facility] Address [address] [place] [address] [address] [place] [address] Phone [phone] Care Team Providers Care Blanking Press Operator Name Role Phone Rcok VILLEDA, Esther Unavailable DEYANIRA COLON Unavailable DEYANIRA COLON Unavailable PROBLEMS Condition Status Date Provider Notes Shortness of breath active Esther Wilkerson MD Breast cancer, s/p double mastectomy 01/2023 active 20 22/05/19 Esther Wilkerson MD Snoring Nl sleepstudy 01/19 active Esther aviles MD Pre-diabetes active Esther Wilkerson MD Obesity active Esther Wilkerson MD Chest pain- Nl echo , ca score zero in 01/19 active 20 19/12/18 Esther Wilkerson MD ENCOUNTERS Date Type Provider Location Encounter Diag nosis - In-person encounter Office Visit Esther Wilkerson MD [facility] Chest pain- Nl echo , ca score zero in 01/19Snoring Nl sleepstudy 01/19Breast cancer, s/p double mastectomy 01/2023Shortness of breath - In-person encounter Office Visit Esther Wilkerson MD [facility] Chest pain- Nl echo , ca score zero in 01/19ObesityPre-brayan betesSnoring Nl sleepstudy 01/19 VITAL SIGNS Date Observation Value Provider Body Mass Index (Ratio) 28.73 kg/m2 Joe Wilkerson MD blood pressure, diastolic 88 mm[Hg] Jayleen [employer] blood pressure, systolic 144 mm[Hg] Kaylah kLogbrigitte blood pressure, diastolic 88 mm[Hg] Nupur Quintero blood pressure, systolic 144 mm[Hg] Nga karena Quintero pulse rate 81 /min Shanell Quintero respiratory rate E&M 17 /min Shanell Kruse lliams oxygen saturation, oximetry 100 % Shanell Quintero weight E&M 189 [lb_av] Shanell Quintero height E&M 68 [in_i] Shanell Quintero blood pressure, cuff size large Nupur sherrie Quintero blood pressure, cuff size large Muna Mckinney HISTORY OF MEDICATION USE Medication Status Instructions Dates Provider Indications Com ments metformin 500 mg tablet completed Take 1 tablet by mouth once a day - Shanell Quintero SOCIAL HISTORY Date Observation Value Provider smoking status Never smoker Shanell Quintero social history reviewed E&M reviewed - no changes required Esther Wilkerson MD INSURANCE PROVIDERS Payer name Policy type / Coverage type [place] red libertarian ID [employer] [employer] insurance company [employer] [employer] insurance [email or web address] [id number] ADVANCE DIRECTIVES Name Date DISCUSSED - NO DECISION MADE TREATMENT PLAN Date Name Performer Cardiology: O rders: C T Angio Chest (PE Protocol) (CPT-27609) Aaron Shah Cardiology Aaron Shah Cardiology Aaron Shah Cardiology Aaron Shah Cardiology: O rders: E KG (CPT-88690) C T Angio Chest (PE Protocol) (CPT-83760) Aaron Shah Date Name COMPREHENSIVE METABO LIC PANEL, W/EGFR D-DIMER, QUANTITATIV E CT Angio Chest (PE P rotocol) Complete Echo CT, Coronary Calcium Score HISTORY OF PROCEDURES Procedure Date Procedure Name Provider Procedure Notes S tatus EKG Esther Wilkerson MD completed CT- Coronary CA score Esther Wilkerson MD completed
== END 2024-03-28 14:44 | disposition home or self-care (01) ==
PROVIDERS: Emergency Provider Nurse Practitioner Family; PCP Physician Assistant
DX: R53.81 Other malaise (principal); Z20.822 Contact with and (suspected) exposure to COVID-19; Z86.000 Personal history of in-situ neoplasm of breast; Z90.13 Acquired absence of bilateral breasts and nipples
CPT/HCPCS: 87426; 87804; 99212; G0463

== ENCOUNTER 2024-07-11 07:25 | Outpatient (CLI) | payer OTHER, SELFPAY ==
--- NOTE | ~2024-07-11 | US_ITS ---
Limited Abdominal Sonogram: Real-time sonographic imaging of the right upper quadrant was performed. Clinical History: Gallbladder polyp COMPARISON: 09/07/2023 Findings: The liver appears normal with no evidence of mass lesion or bile duct dilatation. Main por heidy vein demonstrates normal direction of flow. The gallbladder is well distended, and demonstrates s table 5 mm gallbladder wall polyp. The common bile duct measures 4 mm. The visualized pancreas, aort a, and IVC are unremarkable. Impression: Probable 5 mm gallbladder wall polyp, similar to prior exam. Reviewed, dictated and finalized at location M. Impression: Probable 5 mm gallbladder wall polyp, similar to prior exam.
== END 2024-07-11 07:26 | disposition home or self-care (01) ==
LOC: MICIMG 07:27
PROVIDERS: PCP Surgery; Visit Provider Physician Assistant
DX: K82.4 Cholesterolosis of gallbladder (principal)
CPT/HCPCS: 76705

== ENCOUNTER 2025-02-25 07:22 | Emergency (ER) | payer OTHER, SELFPAY ==
--- OUTSIDE RECORDS SUMMARY | 2019-02-14 | XMS_ITS | Encounter Summary ---
Author Organization [facility] Healthcare Address [address] [place] [address] Care Team Providers Care Rib Cloth Knitter Name Role Phone Unavailable Primary Care Provider Unavailabl e Reason for Visit * Diagnostic Imaging (Routine) - Closed Specialty Diagnoses / Procedures Referred By Contac t Referred To Contact Diagnoses Malignant neoplasm of left female breast, unspecified estrogen receptor status, unspecified site of breast (HCC) Procedures Breast Imaging Diagnostic [place] [address] [place] [id number] Phone: tel: fax: Referral ID Status Reason Start Date Expiration Date Visits Re quested Visits Authorized [id number] Closed 12/28/2022 01/27/2024 1 1 Encounter Details Date Type Department Care Team (Late st Contact Info) Description 02/14/2019 Hospital Encounter [facility] [address] [place] [address] Social History Tobacco Use Types Packs/Day Years Used Date Smoking Tobacco: Never Passive Smoke Exposure: Never Smokeless Tobacco: Never AUDIT-C Answer Date Recorded Q1: How often do you have a drink containing alc ohol? 2-3 times a week 02/01/2023 Q2: How many drinks containi ng alcohol do you have on a typical day when you are drinking? 1 or 2 02/01/2023 Q3: How often do you have si x or more drinks on one occasion? Never 02/01/2023 Personal Safety Answer Date Recorded Have you ever been in or are you currently in a harmful physical or emotional relationship or is someone making you feel afraid or unsafe? 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 There will be no report generated by a [facility] Radiologist. Narrative [facility] - 12/28/2022 10:37 AM CDT EXAMINATION: Images For Reference Purposes Only us Gabriella Szymanski MD IMG MAMMO PROCEDURES Fi nal Result [facility] documented in this encounter Visit Diagnoses Not on filedocumented in this encounter
--- OUTSIDE RECORDS SUMMARY | 2019-02-14 | XMS_ITS | Encounter Summary ---
Author Organization [facility] Healthcare Address [address] [place] [address] Care Team Providers Care Firmware Software Verification Engineer Name Role Phone Unavailable Primary Care Provider Unavailabl e Reason for Visit * Diagnostic Imaging (Routine) - Closed Specialty Diagnoses / Procedures Referred By Contac t Referred To Contact Diagnoses Malignant neoplasm of left female breast, unspecified estrogen receptor status, unspecified site of breast (HCC) Procedures Breast Imaging Diagnostic [place] [address] [place] [id number] Phone: tel: fax: Referral ID Status Reason Start Date Expiration Date Visits Re quested Visits Authorized [id number] Closed 12/28/2022 01/27/2024 1 1 Encounter Details Date Type Department Care Team (Late st Contact Info) Description 02/14/2019 Hospital Encounter [facility] [address] [place] [address] Social History Tobacco Use Types Packs/Day Years [...] DIAGNOSTIC OUTSIDE REFERENCE Routine 02/14/2019 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 There will be no report generated by a [facility] Radiologist. Narrative [facility] - 12/28/2022 10:37 AM CDT EXAMINATION: Images For Reference Purposes Only us Gabriella Szymanski MD IMG MAMMO PROCEDURES Fi nal Result [facility] documented in this encounter Visit Diagnoses Not on filedocumented in this encounter
--- OUTSIDE RECORDS SUMMARY | 2020-02-20 | XMS_ITS | Encounter Summary ---
Author Organization [facility] Healthcare Address [address] [place] [address] Care Team Providers Care Timber Sizer Name Role Phone Unavailable Primary Care Provider Unavailabl e Reason for Visit * Diagnostic Imaging (Routine) - Closed Specialty Diagnoses / Procedures Referred By Contac t Referred To Contact Procedures Breast Imaging Diagnostic Outside Reference Gabriella Szymanski MD [address] [place] [id number] Phone: tel: fax: Referral ID Status Reason Start Date Expiration Date Visits Re quested Visits Authorized [id number] Closed 12/28/2022 01/27/2024 1 1 Encounter Details Date Type Department Care Team (Late st Contact Info) Description 02/20/2020 Hospital Encounter [facility] Radiology [facility] [address] [place] [address] Social History Tobacco Use Types Packs/Day Years [...] BREAST IMAGING MG DIAGNOSTIC OUTSIDE REFERENCE Routine 02/20/2020 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 There will be no report generated by a [facility] Radiologist. Narrative [facility] - 12/28/2022 10:48 AM CDT EXAMINATION: Images For Reference Purposes Only us Gabriella Szymanski MD IMG MAMMO PROCEDURES Fi nal Result [facility] documented in this encounter Visit Diagnoses Not on filedocumented in this encounter
--- OUTSIDE RECORDS SUMMARY | 2020-02-20 | XMS_ITS | Encounter Summary ---
Author Organization [facility] Healthcare Address [address] [place] [address] Care Team Providers Care Sole Layer Hand Name Role Phone Unavailable Primary Care Provider Unavailabl e Reason for Visit * Diagnostic Imaging (Routine) - Closed Specialty Diagnoses / Procedures Referred By Contac t Referred To Contact Procedures Breast Imaging Diagnostic Outside Reference Gabriella Szymanski MD [address] [place] [id number] Phone: tel: fax: Referral ID Status Reason Start Date Expiration Date Visits Re quested Visits Authorized [id number] Closed 12/28/2022 01/27/2024 1 1 Encounter Details Date Type Department Care Team (Late st Contact Info) Description 02/20/2020 Hospital Encounter [facility]iology [facility] [address] [place] [address] Social History Tobacco Use Types Packs/Day Years [...] DIAGNOSTIC OUTSIDE REFERENCE Routine 02/20/2020 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 There will be no report generated by a [facility] Radiologist. Narrative [facility] - 12/28/2022 10:48 AM CDT EXAMINATION: Images For Reference Purposes Only us Gabriella Szymanski MD IMG MAMMO PROCEDURES Fi nal Result [facility] documented in this encounter Visit Diagnoses Not on filedocumented in this encounter
--- NOTE | ~2025-02-25 | US_ITS ---
US abdomen limited INDICATION: Right upper quadrant pain. Epigastric pain. PROCEDURE: Realtime right upper abdominal ultrasound. COMPARISON: No prior studies for comparison. FINDINGS: The pancreas is normal without focal mass or pancreatic ductal dilation. Liver echotexture is normal without focal mass or intrahepatic biliary dilatation. There is normal directional flow in the portal vein. There is gallbladder sludge. Common bile duct measures 5 mm. No sonographic New's sign. IMPRESSION: 1: Gallbladder sludge. Reviewed, dictated and finalized at location O. ATTENDANT IMPRESSION: 1: Gallbladder sludge.
--- OUTSIDE RECORDS SUMMARY | 2025-02-25 07:24 | XMS_ITS | Data Portability ---
Author Organization [place] - [facility], Main Office Address [address] [place] [address] Assessment No assessment recorded. Plan of Treatment Reminders Order Date Submit Date Provider Last Modified By Organization Details Last Modified Time Details Appointments None recorded. Lab testosteron e, free + total, serum 2022 023 DWAYNE Not available 3 17:48:05 dhea-sulfat e, serum 2022 023 [facility] 146 Not available 3 16:44:46 insulin, serum 2022 023 [facility] 146 Not available 3 16:44:46 dihydrotest osterone (dht), serum 2022 023 [place] 146 Not available 3 16:44:47 CMP, serum or plasma 2022 023 [...] 3 15:44:49 HbA1c (hemoglobin A1c), blood 2022 [facility] 146 Not available 3 16:44:47 Referral None recorded. Procedures None recorded. Surgeries None recorded. Imaging None recorded. Medication Orders spironolact one 100 mg tablet 2022 023 [id number] [address], [place], [place], [id number], 13:19:06 Patient TargetsNo targets recorded. Patient InstructionsNo [...] is negat bashir. TEST DESCR IPTIO N: [place] site algor ithmi c candy sis of [...] years or older , who are at [facility] for color ectal cance r (CRC) . Colog uard has been appro elroy for use by the [place] FDA. The perfo rmanc e of Colog uard was estab lishe d in a cross secti onal study of [facility] adult s aged 50-84 . Colog uard perfo rmanc e in patie nts ages 45 to 49 years was estim ated by sub-g roup candy sis of near- age group s. Colon oscop ies perfo rmed for a posit bashir resul t may find as the most clini christine signi socorro t tracie n: color ectal cance r [4.0% ], [...] of 0 indiv idual s at [facility] risk for color ectal cance r [...] ution s can be found at www.c leigh ann ferrerd.c om. Not Available [facility] [address], [place], [address], 02/04/2023 10:50:02 11/14/19 22 11/13/2021 XR, chest , 2 view No observ ation record ed. [id number] [facility] [address] [place], [address], 04/28/2022 20:02:08 12/31/19 22 12/30/2021 US, neck, soft tissu e No observ ation record ed. [id number] Not Available 04/28/2022 20:02:08 12/31/19 22 12/30/2021 MAMMO , scree goldie, digit al, bilat eral No observ ation record ed. [id number] [facility] [address] [place], [address], 04/28/2022 20:02:08 12/31/19 22 12/30/2021 US, gallb ladde r No observ ation record ed. [id number] Not Available 04/28/2022 20:02:08 12/14/19 23 12/06/2022 MAMMO , diagn ostic , digit al, bilat eral No observ ation record ed. [facility] [address], [place], [address], 12/13/2022 18:13:05 12/15/19 23 12/14/2022 stere otact ic breas t biops y (PROC ) No observ ation record ed. [email or web address] [place] [address] (Imaging) [address], [place], [address], 03/02/2023 23:24:23 12/31/19 23 12/06/2022 MAMMO , diagn ostic , digit al, bilat eral No observ ation record ed. [email or web address] [address], [place], [address], 01/03/2023 17:12:49 Result Notes None recorded. Problems Name Problem SNOMED Code Status Onset Date Resolution Date Notes Provider Name and Address Organization Details Recorded Time Gallstone 605993759 Active 2021 Not Available [facility] 3 20:01:16 Neck swelling 934054165 Active 2021 Not Available [facility] 3 20:01:17 Hyperlipid emia 12558275 Active 2021 Not Available [facility] 3 20:01:17 Female hirsutism 27269192 Active 2022 TAJ Bryant [address], [place], [address] , [employer] [facility] 3 13:13:52 Loss of hair 156329407 Active 2022 TAJ Bryant [address], [place], [address] , [employer] [facility] 3 13:15:36 Elevated blood-pres sure reading without diagnosis of hypertensi on 541769584 Active 2022 TAJ Bryant [address], [place], [address] , [employer] [facility] 3 13:16:46 Allergy to food 609089994 Active 2022 TJA Bryant [address], [place], [address] , [employer] [facility] [employer] [facility] 3 12:45:05 Lesion of breast 228898036 Active 2022 TAJ Bryant [address], [place], [address] , [facility] 3 08:34:08 Eruption 744230319 Active 2022 TAJ Bryant [address], [place], [address] , [facility] 3 08:54:30 Localized eruption of skin 510649117 Active 2022 TAJ Bryant [address], [place], [place], [address] [place] [address] , [facility] 3 08:54:33 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 4074702149133 9106 Active 2022 TAJ Bryant [address], [place], [place], [address] [place] [address] , [facility] 3 13:39:59 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 Procedures Surgical History Date Name Laterality Status Provider Name and Address Organization Details Recorded Time 7 Knee Surgery completed Not Available [facility] 023 20:00:52 Imaging Results None recorded. Procedure Notes None recorded. Medical Equipment None [...] Not Available Not Available Vitals Date Recorded Body mass index (BMI) Systolic And Diastolic Provider Name and Address Organization Details Last Updated DateTime 08/26/2022 29.6 kg/m2 130/90 mm[Hg] TAJ Bryant [address], [facility] [address], [place], [address], [facility] [employer] [facility] 08/26/2022 19:19:59 Date Recorded Body temperature Body height Body weight Oxygen saturation Heart rate Provider Name and Address Organization Details Last Updated DateTime 08/26/2022 98.6 [degF] 172.72 cm 77043.5 1 g 98 % 82 /min Sharon Macedo RN [facility] [employer] [facility] 3 12:48:05 Date Recorded Oxygen saturation Heart rate Respiratory rate Body temperature Systolic And Diastolic Provider Name and Address Organization Details Last Updated DateTime 2 98 % 110 /min 16 /min 98.2 [degF] 130/90 mm[Hg] Not Available [facility] 3 20:01:13 Social History Question Answer Notes LastModified by [employer] Details LastModified Time Tobacco Smoking Status Never Smoker Not Available [facility] 04/28/2022 20:00:49 Do You Have An Advance Directive? Yes [id number] Information not available 04/28/2022 What Is Your Level Of Caffeine Consumption? Heavy MIGRATION.0027374 026 Information not available 04/28/2022 What Type Of Diet Are You Following? REGULAR MIGRATION.0631333 026 Information not available 04/28/2022 What Is The Highest Grade Or Level Of School You Have Completed Or The Highest Degree You Have Received? OQ13650-2 [id number].[id number] 026 Information not available 04/28/2022 Do You Have A Humidifier? Yes [id number].5189729 026 Information not available 04/28/2022 Do You Use Insect Repellent Routinely? Yes [id number].[id number] 026 Information not available 04/28/2022 Do You Have Moisture Problems In Your Home? No MIGRATION.7194448 026 Information not available 04/28/2022 What Is Your Relationship Status? [id number].[id number] 026 Information not available 04/28/2022 Do You Have Smoke And Carbon Monoxide Detectors In Your Home? Yes MIGRATION.4842723 026 Information not available 04/28/2022 Are You Passively Exposed To Smoke? No [id number].7772543 026 Information not available 04/28/2022 Are There Any Smokers In Your House? No MIGRATION.5843324 026 Information not available 04/28/2022 Do You Use Sunscreen Routinely? Yes MIGRATION.2580610 026 Information not available 04/28/2022 Are You Currently In School? No MIGRATION.9535071 026 Information not available 04/28/2022 Sex: Unknown Functional Status Question Answer Note LastModified by Organization Details LastModified Time What is your level of alcohol consumption ? Moderate [id number].0301 [id number] Information not available 04/28/2022 Have you been exposed to chemicals or toxins? 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 Moderate MIGRATION.0301 [id number] Information not available 04/28/2022 What type of noise exposure are you exposed to? noExposureToExcessiveNoise MIGRATION.030 1 207279 Information not available 04/28/2022 Mental Status Question Answer Note LastModified by Organizat ion Details LastModified Time Do you feel stressed (tense, restless, nervous, or anxious, or unable to sleep at night)? [id number] MIGRATION.[id number] 6 Information not available 04/28/2022 Family History Relationship Description Onset Age of this Age Resolved Age Notes LastModified by Organization Details LastModified Time Maternal Aunt Osteopenia MIGRATI ON.143 [id number] Not available 04/28/2022 20:00:53 Father Small cell carcinoma of lung 60 MIGRATION.425 [id number] Not available 04/28/2022 20:00:53 Medical History No medical history recorded. Gynecological HistoryNo gynecological history recorded. Obstetrics History GPAL:G 0 P 0 0 0 0 Past Encounters Encounter ID Performer Location Encounter Start Date Encounter Closed Date Diagnosis/Indication Diagnosis SNOMED-CT Code Diagnosis ICD10 Code Diagnosis IMO Codes Diagnosis Note [id number] TAJ Bryant [facility] [place] [address] [place] [address] 12/02/2021 00:00:00 12/28/2021 15:16:59 [id number] TAJ Bryant [facility] [place] [address] [place] [address] 08/26/2022 12:31:34 08/26/2022 13:18:00 Female hirsutism 92877285 L68.0 screening testostero ne , dhea, insulin and dht labs ordered Cholesterol screening 27 9207264 Z13.220 screening lipids due Diabetes m ellitus screening 645918955 Z13.1 screening diabetes ordered Thyroid di sorder screening 810972781 Z13.29 TFT panel due Long-term drug therapy 305046356 Z79.899 Loss of hair 236415330 L 65.9 screening labs for reported hair loss Elevated blood-pressure reading without diagnosis of hypertension 054959818 R03.0 start spironolac tone 100mg daily. Health Concerns Section Related Observation LastModified by Organization Detai ls LastModified Time None Recorded Concern Status LastModified by Organization Details LastModified Time None Recorded Advance Directives Directive Y: Payers Insurance Date Sequence Insurance Name Policy Number Policy Mart Covered Member ID Mart Member ID Guarantor Name 08/26/2022 1 [place] 000 Brunazara Maciel [id number] Bruna Maciel 08/26/2022 1 [employer] - HEALTH CHOICES - [facility] (PPO) [id number] H Rishabh Maciel [id number] Bruna Maciel 12/20/2022 1 [facility] [place] [id number] Bruna Maciel [id number] Bruna Maciel 12/20/2022 1 [place] [id number] Bruna Maciel [id number] Bruna Maciel Notes Date Note Type Note Provider Name and Address Organization Details Recorded Time 3 text/html HypertensionReported by PatientHPIFor quality, patient reportspressure. For associated symptoms, patient reportspalpitationsbut reportsno shortness of breath,no fatigue,no decline in exercise capacity, andno snoring. For onset/timing, patient reportsgradual onset. For alleviating factors, patient reportsrelieved with rest.headache TAJ Bryant [address] [facility], [facility] [address], [place], [address], [facility] 08/26/2022 19:22:41 OBGyn Episode No OBEpisode recorded.
--- OUTSIDE RECORDS SUMMARY | 2025-02-25 07:24 | XMS_ITS | Clinical Summary ---
Author Organization [facility] Address [address] [place] [address] Care Team Providers Care Cloth Seconds Sorter Name Role Phone Quianajair Daija VANG Primary Care Pr ovider Allergies No known active allergies Medications cholecalciferol (VITAMIN D-3) 2000 unit capsuleIndicati ons:Vitamin D Deficiency Take 1 capsule (2,000 Units total) by mouth developmental writing instructor before breakfast 2 Active multivitamin capsuleIndicati ons:Vitamin Deficiency Prevention Take 1 capsule by mouth developmental writing instructor before breakfast 2 Active metroNIDAZOLE (METROGEL) 1 % gel APPLY DIME-SIZED AMOUNT TOPICALLY ONCE DAILY 5 Active Active Problems Problem Noted Date Diagnosed Date Lesion of oropharynx 01/25/2024 Malignant neoplasm of female breast 01/11/2023 Ductal carcinoma in situ (DCIS) of right breast 01/03/2023 Surgical History Surgery Date Site/Laterality Comments KNEE [...] Sign Reading Time Taken Comments Blood Pressure 119/87 09/19/2024 8:40 AM CDT Pulse 112 09/19/2024 8:40 AM CDT Temperature 36.7 C (98.1 F) 09/19/2024 8:40 AM CDT Respiratory Rate 18 01/25/2024 1:04 PM OB/GYN DOCTOR Oxygen Saturation 99% 09/19/2024 8:40 AM CDT Inhaled Oxygen Concentration - - Weight 91.4 kg (201 lb 9.6 oz) 09/19/2024 8:40 A M CDT Height 172.7 cm (5' 7.99) 09/19/2024 8:40 AM CD T Body Mass Index 30.66 09/19/2024 8:40 AM CDT Plan of Treatment Health Maintenance Due Date Last Done Comments Breast Cancer Screening-Mammogram 1977 Cervical Cancer Screening 1977 Colon Cancer Screening-Colonoscopy 1977 Depression Screening 1977 Hepatitis C Screening 1977 DTaP/Tdap/Td Vaccine (1 - Tdap) 1988 Hepatitis B Screening 08/17/1995 Regular Well Visit/Exam 18-64 08/17/1995 Covid-19 Vaccine (3 - 2024-2 6 season) 2024 10/01/2020, 09/03/2020 Influenza Vaccine (#1) 2024 , 12/13/2022 Pneumococcal vaccine <65 Aged Out No longer eligible based on patient's age to complete this topic Medical Devices Implanted Type Area Vocational Services Specialist Device Identifier Shelf Expiration Date Model / Serial / Lot [employer] Implant Hsc Gel Breast Smooth Round Moderate 600cc [id number] - [id number] - [id number] Implanted:Qty: 1 on 02/09/2023 by Saira Camilo MD at [facility] Breast Right: Breast [employer] [id number] P / [id number] / Description:IMPLANT PAUSE PE RFORMED [employer] Implant Hsc Gel Breast Smooth Round Moderate 600cc [id number] - [id number] - [id number] Implanted:Qty: 1 on 02/09/2023 by Saira Camilo MD at [facility] Breast Left: Breast [employer] [id number] P / [id number] / Description:IMPLANT PAUSE PE RFORMED [employer] Graft Tissue Tailored Dermis Large 1mm Thick Cortiva 10.2x21.1cm [id number] - [id number] - [id number] Implanted:Qty: 1 on 02/09/2023 by Saira Camilo MD at [facility] Left: Breast [employer] 04/28/2027 [id number] / [id number] / [id number] [employer] Graft Tissue Tailored Dermis Large 1mm Thick Cortiva 10.2x21.1cm [id number] - [id number] - [id number] Implanted:Qty: 1 on 02/09/2023 by Saira Camilo MD at [facility] Right: Breast [employer] 03/30/2027 [id number] / [id number] / [id number] [employer] Mesh Surg [place] 3d 21x7.5cm Soft Tissue Scaffold [place] [id number] - [id number] Implanted:Qty: 1 on 02/09/2023 by Saira Camilo MD at [facility] Bilateral: Breast [employer] 10/19/2025 [id number] / / [id number] Description:Implant pause pe rformed Shashi [place] Mesh Surgical P4hb Synthetic [place] Galaflex Lite 17cm Soft Tissue Repair [id number] - [id number] Implanted:Qty: 1 on 02/09/2023 by Saira Camilo MD at [facility] Right: Breast Shashi [place] 12/29/2023 [id number] / / [id number] Description:Implant pause pe rformed Shashi [employer]i [employer] P4hb Synthetic [place] Galaflex Lite 17cm Soft Tissue Repair [id number] - [id number] Implanted:Qty: 1 on 02/09/2023 by Saira Camilo MD at [facility] Left: Breast Shashi Adi 12/29/2023 [id number] / / [id number] Description:Implant pause pe rformed Insurance [employer] OPEN ACCESS [employer] OPEN ACCESS Care Teams Cloth Seconds Sorter Relationship Specialty Start Date End Date Daija Simpson PA PCP - General Physician Passenger [place] 12/20/22
--- OUTSIDE RECORDS SUMMARY | 2025-02-25 07:25 | XMS_ITS | Data Portability ---
Author Organization [facility] LITAJorge Address [address] [facility] [place] [address] Care Team Providers Care B2B Sales Executive Name Role Phone VANESSAJEWELOPALIE Primary Care Provider Unavailab le Assessment No assessment recorded. Plan of Treatment Reminders Order Date Submit Date Provider Last Modified By Organization Details Last Modified Time Details Appointments None recorded. Lab TSH + free T4, serum 2024 025 [employer] [facility], [facility] [address], [address], 07:07:59 thyroid peroxidase (tpo) Ab, serum 2024 025 [employer] [facility], [facility] [address], [address], 5 07:08:07 T3, free, serum or plasma 2024 025 [employer] [facility], [facility] [address], [address], 5 07:08:08 HbA1c (hemoglobi n A1c), blood 2024 025 [employer] [facility], [facility] [address], [address], 5 07:08:05 CMP, serum or plasma 2024 025 [employer] [facility], [facility] [address], [address], 5 07:08:01 CBC w/ auto diff 2024 025 [email or web address] [facility], [address] [address], [place], [address], 5 07:08:03 vitamin B12 + folate, serum or blood 2024 025 [email or web address] [facility], [address], [address], 5 07:08:04 lipid panel, serum 2024 025 [email or web address] [facility], [address], [address], 5 07:08:00 insulin, serum 2024 025 [email or web address] [facility], [address], [address], 5 07:08:06 vitamin D, 25-hydroxy , total, serum 2024 025 [place] [address] [email or web address] [facility], [address], [address], 5 12:34:54 iron + TIBC + ferritin, serum 2024 025 [place] [address] [email or web address] [facility], [address], [address], 5 12:34:54 TSH + free T4, serum 2023 024 [facility] [email or web address] [facility], [address], [address], 4 10:07:54 thyroid peroxidase (tpo) Ab, serum 2023 024 [email or web address] [facility], [address], [place], [address], 4 10:09:14 T3, free, serum or plasma 2023 024 [email or web address] [facility], [address], [place], [address], 4 10:09:03 HbA1c (hemoglobi n A1c), blood 2023 024 [employer] [facility], [address], [place], [address], 4 10:08:48 CMP, serum or plasma 2023 024 [facility], [address], [place], [address], 4 10:08:26 CBC w/ auto diff 2023 024 [email or web address] [facility], [address], [place], [address], 4 10:09:25 vitamin B12 + folate, serum or blood 2023 024 [facility], [address], [place], [address], 4 10:09:36 lipid panel, serum 2023 024 [facility], [address], [place], [address], 4 10:08:14 insulin, serum 2023 024 [facility], [address], [place], [address], 10:09:51 Referral None recorded. Procedures None recorded. Surgeries None recorded. Imaging US, gallbladde r 2024 025 [facility], [address], [place], [address], 5 15:51:00 US, neck, soft tissue 2023 024 [facility], [address], [place], [address], 18:20:53 Medication Orders buspirone 5 mg tablet 2023 024 [id number], [address], [place], [place], [id number], 13:59:59 Patient TargetsNo targets recorded. Patient InstructionsNo instructions recorded. Reason for Referral None Reported. Results Created Date Observation Date Name Description Value Unit Range Abnormal Flag Note LastModifiedBy Organization Detail LastModifiedTime 03/07/1903/07/2024 pap, IG + HR HPV HPV negati ve Not Available Not Available 11:15:37 07/12/1907/12/2024 TSH+F REE T4 TSH 1.040 uIU/m L 0.450- 4.500 Not Available [facility] [address] [place], [address], 07/19/2024 07:07:59 07/12/1907/12/2024 TSH+F REE T4 T4,free(dire ct) 1.04 NG/dL 0.82-1 .77 Not Available [facility] [address] [place], [address], 07/19/2024 07:07:59 07/12/19 25 07/12/2024 LIPID PANEL WITH LDL/H DL RATIO cholesterol, total 178 mg/dL 100-19 9 Not Available [facility] [address] [place], [address], 07/19/2024 07:08:00 07/12/1907/12/2024 LIPID PANEL WITH LDL/H DL RATIO triglyceride s 98 mg/dL 0-149 Not Available [facility] [address] [place], [address], 07/19/2024 07:08:00 07/12/19 25 07/12/2024 LIPID PANEL WITH LDL/H DL RATIO HDL cholesterol 49 mg/dL >39 Not Available [facility] [address] [place], [address], 07/19/2024 07:08:00 07/12/1907/12/2024 LIPID PANEL WITH LDL/H DL RATIO VLDL cholesterol brandy 18 mg/dL 5-40 Not Available [facility] [address] [place], [address], 07/19/2024 07:08:00 07/12/19 25 07/12/2024 LIPID PANEL WITH LDL/H DL RATIO LDL chol calc ([facility]) 111 mg/dL 0-99 above high normal Not Available [facility] [address] [place], [address], 07/19/2024 07:08:00 07/12/1907/12/2024 LIPID PANEL WITH LDL/H DL RATIO LDL/HDL ratio 2.3 ratio 0.0-3. 2 LDL/H DL Ratio Men Women 1/2 Avg.R isk 1.0 1.5 Avg.R isk 3.6 3.2 2X Avg.R isk 6.2 5.0 3X Avg.R isk 8.0 6.1 Not Available [facility] [address] [place], [address], 07/19/2024 07:08:00 07/12/19 25 07/12/2024 COMP. METAB OLIC PANEL (14) glucose 88 mg/dL 70-99 Not Available [facility] [address] [place], [address], 07/19/2024 07:08:01 07/12/19 25 07/12/2024 COMP. METAB OLIC PANEL (14) BUN 16 mg/dL 6-24 Not Available [facility] [address] [place], [address], 07/19/2024 07:08:01 07/12/19 25 07/12/2024 COMP. METAB OLIC PANEL (14) creatinine 0.88 mg/dL 0.57-1 .00 Not Available [facility] [address] [place], [address], 07/19/2024 07:08:01 07/12/19 25 07/12/2024 COMP. METAB OLIC PANEL (14) eGFR 82 mL/mi n/1.7 3 >59 Not Available [facility] [address] [place], [address], 07/19/2024 07:08:01 07/12/19 25 07/12/2024 COMP. METAB OLIC PANEL (14) BUN/creatini ne ratio 18 9-23 Not Available [facility] [address] [place], [address], 07/19/2024 07:08:01 07/12/19 25 07/12/2024 COMP. METAB OLIC PANEL (14) sodium 139 mmol/ L 134-14 4 Not Available [facility] [address] [place], [address], 07/19/2024 07:08:01 07/12/19 25 07/12/2024 COMP. METAB OLIC PANEL (14) potassium 4.7 mmol/ L 3.5-5. 2 Not Available [facility] [address] [place], [address], 07/19/2024 07:08:01 07/12/19 25 07/12/2024 COMP. METAB OLIC PANEL (14) chloride 103 mmol/ L 96-106 Not Available [facility] [address] [place], [address], 07/19/2024 07:08:01 07/12/19 25 07/12/2024 COMP. METAB OLIC PANEL (14) carbon dioxide, total 22 mmol/ L 20-29 Not Available [facility] [address] [place], [address], 07/19/2024 07:08:01 07/12/19 25 07/12/2024 COMP. METAB OLIC PANEL (14) calcium 9.5 mg/dL 8.7-10 .2 Not Available [facility] [address] [place], [address], 07/19/2024 07:08:01 07/12/19 25 07/12/2024 COMP. METAB OLIC PANEL (14) protein, total 6.9 g/dL 6.0-8. 5 Not Available [facility] [address] [place], [address], 07/19/2024 07:08:01 07/12/19 25 07/12/2024 COMP. METAB OLIC PANEL (14) albumin 4.3 g/dL 3.9-4. 9 Not Available [facility] [address] [place], [address], 07/19/2024 07:08:01 07/12/19 25 07/12/2024 COMP. METAB OLIC PANEL (14) globulin, total 2.6 g/dL 1.5-4. 5 Not Available [facility] [address] [place], [address], 07/19/2024 07:08:01 07/12/19 25 07/12/2024 COMP. METAB OLIC PANEL (14) bilirubin, total 1.6 mg/dL 0.0-1. 2 above high normal Not Available [facility] [address] [place], [address], 07/19/2024 07:08:01 07/12/19 25 07/12/2024 COMP. METAB OLIC PANEL (14) alkaline phosphatase 64 IU/L 44-121 Not Available [facility] [address] [place], [address], 07/19/2024 07:08:01 07/12/19 25 07/12/2024 COMP. METAB OLIC PANEL (14) AST (SGOT) 20 IU/L 0-40 Not Available [facility] [address] [place], [address], 07/19/2024 07:08:01 07/12/19 25 07/12/2024 COMP. METAB OLIC PANEL (14) ALT (SGPT) 18 IU/L 0-32 Not Available [facility] [address] [place], [address], 07/19/2024 07:08:01 07/12/19 25 07/19/2024 VITAM IN D, 25-HY DROXY , TOTAL vitamin D, 25-hydroxy, serum 26 NG/mL below low normal Refer ence Range : All Ages: Targe t level s 30 - 100 Not Available [facility] [address] [place] [address], [address], 07/19/2024 07:08:02 07/12/19 25 07/11/2024 LAZ RATLIFF V CMP14 DEFAU LT laz esparza CMP14 default COMMEN T A hand- writt en panel /prof ignacio was recei elroy from your offic e. In accor dance with the [facility] Laz uous Test Code Polic y dated August 2002, we have compl eted your order by using the close st aquiles ntly or lizzie mims recog nized AMA panel . We have assig javier Compr ehens noemy Metab olic Panel (14), Test Code #32[address]. If this is not the testi ng you wishe d to recei ve on this speci cristo carpenter ct the [facility] Clien t Inqui ry/Te chnic al Servi mynor Depar tment to stefan fy the test order . We appre ciate your busin ess. Not Available [facility] [address] [place], [address], 07/19/2024 07:08:02 07/12/19 25 07/11/2024 CBC/D IFF AMBIG UOUS DEFAU LT WBC 7.1 x10e3 /uL 3.4-10 .8 Not Available [facility] [address] [place], [address], 07/19/2024 07:08:03 07/12/19 25 07/11/2024 CBC/D IFF AMBIG UOUS DEFAU LT RBC 4.71 x10e6 /uL 3.77-5 .28 Not Available [facility] [address] [place], [address], 07/19/2024 07:08:03 07/12/19 25 07/11/2024 CBC/D IFF AMBIG UOUS DEFAU LT hemoglobin 14.1 g/dL 11.1-1 5.9 Not Available [facility] [address] [place], [address], 07/19/2024 07:08:03 07/12/19 25 07/11/2024 CBC/D IFF AMBIG UOUS DEFAU LT hematocrit 44.1 % 34.0-4 6.6 Not Available [facility] [address] [place], [address], 07/19/2024 07:08:03 07/12/19 25 07/11/2024 CBC/D IFF AMBIG UOUS DEFAU LT MCV 94 fL 79-97 Not Available [facility] [address] [place], [address], 07/19/2024 07:08:03 07/12/19 25 07/11/2024 CBC/D IFF AMBIG UOUS DEFAU LT MCH 29.9 pg 26.6-3 3.0 Not Available [facility] [address] [place], [address], 07/19/2024 07:08:03 07/12/19 25 07/11/2024 CBC/D IFF AMBIG UOUS DEFAU LT MCHC 32.0 g/dL 31.5-3 5.7 Not Available [facility] [address] [place], [address], 07/19/2024 07:08:03 07/12/19 25 07/11/2024 CBC/D IFF AMBIG UOUS DEFAU LT RDW 12.4 % 11.7-1 5.4 Not Available [facility] [address] [place], [address], 07/19/2024 07:08:03 07/12/19 25 07/11/2024 CBC/D IFF AMBIG UOUS DEFAU LT platelets 289 x10e3 /uL 150-45 0 Not Available [facility] [address] [place], [address], 07/19/2024 07:08:03 07/12/19 25 07/11/2024 CBC/D IFF AMBIG UOUS DEFAU LT neutrophils 65 % notest ab. Not Available [facility] [address] [place], [address], 07/19/2024 07:08:03 07/12/19 25 07/11/2024 CBC/D IFF AMBIG UOUS DEFAU LT lymphs 25 % notest ab. Not Available [facility] [address] [place], [address], 07/19/2024 07:08:03 07/12/19 25 07/11/2024 CBC/D IFF AMBIG UOUS DEFAU LT monocytes 7 % notest ab. Not Available [facility] [address] [place], [address], 07/19/2024 07:08:03 07/12/19 25 07/11/2024 CBC/D IFF AMBIG UOUS DEFAU LT eos 2 % notest ab. Not Available [facility] [address] [place], [address], 07/19/2024 07:08:03 07/12/19 25 07/11/2024 CBC/D IFF AMBIG UOUS DEFAU LT basos 1 % notest ab. Not Available [facility] [address] [place], [address], 07/19/2024 07:08:03 07/12/19 25 07/11/2024 CBC/D IFF AMBIG UOUS DEFAU LT neutrophils (absolute) 4.6 x10e3 /uL 1.4-7. 0 Not Available [facility] [address] [place], [address], 07/19/2024 07:08:03 07/12/19 25 07/11/2024 CBC/D IFF AMBIG UOUS DEFAU LT lymphs (absolute) 1.8 x10e3 /uL 0.7-3. 1 Not Available [facility] [address] [place], [address], 07/19/2024 07:08:03 07/12/19 25 07/11/2024 CBC/D IFF AMBIG UOUS DEFAU LT monocytes(ab solute) 0.5 x10e3 /uL 0.1-0. 9 Not Available [facility] [address] [place], [address], 07/19/2024 07:08:03 07/12/19 25 07/11/2024 CBC/D IFF AMBIG UOUS DEFAU LT eos (absolute) 0.1 x10e3 /uL 0.0-0. 4 Not Available [facility] [address] [place], [address], 07/19/2024 07:08:03 07/12/19 25 07/11/2024 CBC/D IFF AMBIG UOUS DEFAU LT baso (absolute) 0.1 x10e3 /uL 0.0-0. 2 Not Available [facility] [address] [place], [address], 07/19/2024 07:08:03 07/12/19 25 07/11/2024 CBC/D IFF AMBIG UOUS DEFAU LT immature granulocytes 0 % notest ab. Not Available [facility] [address] [place], [address], 07/19/2024 07:08:03 07/12/1907/11/2024 CBC/D IFF AMBIG UOUS DEFAU LT immature grans (abs) 0.0 x10e3 /uL 0.0-0. 1 A hand- writt en panel /prof ile was recei elroy from your offic e. In accor dance with the [facility] Ambjimenez uous Test Code Polic y dated August 2002, we have assig javier CBC with Brenna morales al/Pl vega t, Test Code #[address]. If this is not the testi ng you wishe d to recei ve on this speci men, plejayshree e sissy ct the [facility] Inqui ry/ Techn ical Servi mynor Depar tment to stefan fy the test order . We appre ciate your busin ess. Not Available [facility] [address] [place], [address], 07/19/2024 07:08:03 07/12/19 25 07/12/2024 VITAM IN B12 AND FOLAT E vitamin B12 617 pg/mL 232-12 45 Not Available [facility] [address] [place], [address], 07/19/2024 07:08:04 07/12/19 25 07/12/2024 VITAM IN B12 AND FOLAT E folate (folic acid), serum 14.1 NG/mL >3.0 A serum folat e rick ntrat ion of less than 3.1 ng/mL is consi dered to repre sent clini brandy defic iency . Not Available [facility] [address] [place], [address], 07/19/2024 07:08:04 07/12/19 25 07/12/2024 IRON AND TIBC iron bind.cap.(TI BC) 329 ug/dL 250-45 0 Not Available [facility] [address] [place], [address], 07/19/2024 07:08:05 07/12/19 25 07/12/2024 IRON AND TIBC UIBC 242 ug/dL 131-42 5 Not Available [facility] [address] [place], [address], 07/19/2024 07:08:05 07/12/19 25 07/12/2024 IRON AND TIBC iron 87 ug/dL 27-159 Not Available [facility] [address] [place], [address], 07/19/2024 07:08:05 07/12/19 25 07/12/2024 IRON AND TIBC iron saturation 26 % 15-55 Not Available [facility] [address] [place], [address], 07/19/2024 07:08:05 07/12/19 25 07/11/2024 HEMOG LOBIN A1C hemoglobin A1C 5.5 % 4.8-5. 6 Predi abete s: 5.7 - 6.4 Diabe magda: >6.4 Glyce senait contr ol for adult s with diabe magda: <7.0 Not Available [facility] [address] [place], [address], 07/19/2024 07:08:05 07/12/19 25 07/12/2024 INSUL IN insulin 8.7 uIU/m L 2.6-24 .9 Not Available [facility] [address] [place], [address], 07/19/2024 07:08:06 07/12/19 25 07/12/2024 ROMINA TIN ferritin 61 NG/mL 15-150 Not Available [facility] [address] [place], [address], 07/19/2024 07:08:07 07/12/19 25 07/12/2024 THYRO ID PEROX IDASE (TPO) AB thyroid peroxidase (tpo) Ab 11 IU/mL 0-34 Not Available [facility] [address] [place], [address], 07/19/2024 07:08:07 07/12/19 25 07/12/2024 TRIIO DOTHY DELANEY E (T3), FREE triiodothyro nine (T3), free 3.2 pg/mL 2.0-4. 4 Not Available [facility] [address] [place], [address], 07/19/2024 07:08:08 09/07/19 24 09/07/2023 US, liver No observ ation record ed. [address] [place] [address], [address], 09/09/2023 11:51:34 09/07/19 24 09/07/2023 US, neck, soft tissu e No observ ation record ed. [id number] [facility] [address], [place], [address], 09/09/2023 11:51:14 07/12/19 25 07/11/2024 US, ashia burrell No observ ation record ed. [facility] [address], [place], [address], 07/18/2024 12:21:25 Result Notes None recorded. Problems Name Problem SNOMED Code Status Onset Date Resolution Date Notes Provider Name and Address Organization Details Recorded Time Prediabetes 675768732 Active 2023 TAJ Bryant Attn: Accountin g,[address] [facility], [place], [address], [place] [facility] 4 08:42:19 Insulin resistance 926830196 Active 2023 TAJ Bryant Attn: Accountin g,[address] [facility], [place], [address], [place] [facility] 4 08:42:20 History of malignant neoplasm of breast 059438331 Active 2023 TAJ Bryant Attn: Accountin g,[address] [facility], [place], [address], [place] [facility] 4 08:42:21 Generalized anxiety disorder 56504303 Active 2023 TAJ Bryant Attn: Accountin g,[address] [facility], [place], [address], [place] [facility] 4 08:42:22 Overweight in adulthood with body mass index of 25 or more but less than 30 214723473 Active 2024 Lj Vides [place] null, [place] [facility] 5 13:57:54 Positive screening for depression on PHQ-9 (Patient Health Questionnai re 9) 0872643350537 00 Active 2024 TAJ Bryant Attn: Accountin g,[address] [facility], [place], [address], [place] [facility] 08:14:25 Polyp of gallbladder 378657114 Active 2024 TAJ Bryant Attn: Anjelica kumar,[address] [facility], [place], [address], [facility] 5 08:14:33 Problem Notes None recorded. Procedures Surgical History Date Name Laterality Status Provider Name and Address Organization Details Recorded Time Knee Surgery completed Lj Vides MA [facility] 06/22/2023 11:35:15 Breast Surgery completed Lj Vides MA [facility] 06/22/2023 11:35:21 Imaging Results None recorded. Procedure Notes None recorded. Medical Equipment None Reported. Allergies No known drug allergies Medications Name Sig Start Date Stop Date Status Note LastModified by Organization Details LastModified Time cyclobenzap rine 10 mg tablet 06/21 completed Not Available Not Available Not Available buspirone 5 mg tablet TAKE 1 TABLET BY MOUTH TWICE DAILY 06/27 completed Not Available Not Available Not Available metformin 500 mg tablet TAKE 1 TABLET BY MOUTH TWICE DAILY WITH FOOD 06/27 completed Not Available Not Available Not Available doxycycline hyclate 100 mg capsule 06/21 completed Not Available Not Available Not Available hydrocodone 5 mg-acetamin ophen 325 mg tablet TAKE 1 TABLET BY MOUTH EVERY 6 HOURS NEEDED FOR PAIN 06/21 completed Not Available Not Available Not Available valacyclovi r 500 mg tablet Take 1 mg as needed by oral route for 14 days. active Not Available Not Available No t Available sulfamethox azole 800 mg-trimetho prim 160 mg tablet TAKE 1 TABLET BY MOUTH TWICE DAILY X 10 DAYS 06/27 completed Not Available Not Available Not Available propranolol 10 mg tablet TAKE 1 TABLET BY MOUTH THREE TIMES DAILY NEEDED 06/27 completed Not Available Not Available Not Available nystatin 100,000 unit/gram topical cream APPLY TOPICALLY TO THE AFFECTED AREA TWICE DAILY 06/21 completed Not Available Not Available Not Available docusate sodium 100 mg capsule TAKE ONE CAPSULE BY MOUTH TWICE DAILY 06/21 completed Not Available Not Available Not Available sertraline 25 mg tablet TAKE 1 TABLET BY MOUTH DAILY 06/27 completed Not Available Not Available Not Available epinephrine 0.3 mg/0.3 mL injection, auto-inject or 04/24 /2024 completed Not Available Not Available Not Available methylpredn isolone 4 mg tablets in a dose pack FOLLOW PACKAGE DIRECTION S 06/27 completed Not Available Not Available Not Available SSD 1 % topical cream APPLY TOPICALLY TO BOTH BREAST WOUNDS TWICE DAILY 06/21 completed Not Available Not Available Not Available celecoxib 100 mg capsule 06/21 completed Not Available Not Available Not Available ondansetron 4 mg disintegrat ing tablet 06/21 completed Not Available Not Available Not Available metformin ER 500 mg tablet,exte nded release 24 hr TAKE 1 TABLET BY MOUTH EVERY DAY WITH DINNER 06/21 completed Not Available Not Available Not Available spironolact one 50 mg tablet TAKE 1 TABLET BY MOUTH EVERY DAY 06/21 completed Not Available Not Available Not Available amoxicillin 875 mg-potassiu m clavulanate 125 mg tablet TAKE 1 TABLET BY MOUTH TWICE DAILY 06/27 completed Not Available Not Available Not Available pregabalin 75 mg capsule 06/21 completed Not Available Not Available Not Available sodium,pota ssium,mag sulfates 17.5 gram-3.13 gram-1.6 gram oral soln 06/21 completed Not Available Not Available Not Available Vitals Date Recorded Body weight Body mass index (BMI) Body height Respiratory rate Heart rate Oxygen saturation Systolic And Diastolic Systolic And Diastolic Provider Name and Address Organization Details Last Updated DateTime 4 65886.2 9 g 29 kg/m2 172.72 cm 20 /min 75 /min 98 % 140/82 mm[Hg] 132/88 mm[Hg] Lj Vides MA [facility] 4 11:32:28 Date Recorded Respiratory rate Systolic And Diastolic Provider Name and Address Organization Details Last Updated DateTime 06/27/2024 18 /min 130/84 mm[Hg] TAJ Bryant Attn: Accounting,[address] [place], [address], [facility] 06/27/2024 14:40:24 Date Recorded Body height Body mass index (BMI) Body weight Oxygen saturation Heart rate Systolic And Diastolic Provider Name and Address Organization Details Last Updated DateTime 5 172.72 cm 29.8 kg/m2 40121.1 g 99 % 88 /min 150/82 mm[Hg] Lj Vides [place] [facility] 14:03:45 Social History Question Answer Notes LastModified by Organizat ion Details LastModified Time Tobacco Smoking Status Never Smoker Lj Vides MA null, [place] [facility] 06/22/2023 11:26:56 Do You Have An Advance Directive? Yes Information not available 06/27/2024 Are You Blind Or Do You Have Difficulty Seeing? No Information not available 06/22/2023 What Is Your Level Of Caffeine Consumption? Moderate 3x A Week Information not available 06/22/2023 In The 14 Days Before Symptom Onset, Have You Had Close Contact With A Laboratory-confir med COVID-19 While That Case Was Ill? No Information not available 06/22/2023 In The 14 Days Before Symptom Onset, Have You Had Close Contact With A Person Who Is Under Investigation For COVID-19 While That Person Was Ill? No Information not available 06/22/2023 Have You Been To An Area Known To Be High Risk For COVID-19? No Information not available 06/22/2023 Are You Deaf Or Do You Have Serious Difficulty Hearing? No Information not available 06/22/2023 What Type Of Diet Are You Following? VEGETARIAN Information not available 06/22/2023 Are There Any Guns Present In Your Home? No Information not available 06/22/2023 What Was The Date Of Your Most Recent Tobacco Screening? 06/27/2024 Information not available 06/27/2024 What Is Your Relationship Status? Information not available 06/27/2024 Do You Use Your Seat Belt Or Car Seat Routinely? Yes Information not available 06/22/2023 Do You Have Smoke And Carbon Monoxide Detectors In Your Home? Yes Information not available 06/22/2023 Do You Use Sunscreen Routinely? No Information not available 06/22/2023 Has Tobacco Cessation Counseling Been Provided? Yes Information not available 06/22/2023 On What Date Was Tobacco Cessation Counseling Provided? 06/27/2024 Information not available 06/27/2024 Sex: Female Functional Status Question Answer Note LastModified by Organizat ion Details LastModified Time Do you use any illicit or recreational drugs? No Information not available 06/22/2023 Do you or have you ever used any other forms of tobacco or nicotine? No Information not available 06/22/2023 What is your level of alcohol consumption? Occasional Information not available 06/22/2023 Are you currently employed? Yes Information not available 06/27/2024 Are you able to care for yourself independently? Yes Information not available 06/22/2023 What is your exercise level? Moderate riding bike, circuit training. Information not available 06/22/2023 Mental Status None recorded. Family History Relationship Description Onset Age of this Age Resolved Age Notes LastModified by Organization Details LastModified Time Father Harmful pattern of use of alcohol tcarterma Not available 2023 11:35:33 Father Hypercholest erolemia tcarterma Not available 2023 11:35:52 Father Osteoporosis tcarterma Not avai lable 06/22/2023 11:36:01 Brother Disorder of thyroid gland tcarterma Not available 2023 11:35:42 Mother Hypertensive disorder tcarterma Not available 2023 11:35:48 Mother Osteoporosis tcarterma Not avai lable 06/22/2023 11:36:01 Medical History Condition Response Coronary Artery Disease N Other N High Blood Pressure N Atrial Fibrillation N Kidney or Bladder Problems N Thyroid Problems Y GI Problems N Depression N COPD N Blood Clots N Skin Problems N Anemia N Heart Attack (MS) N Anxiety Disorder N Diabetes N Muscle, Joint, or Bone Problems N Seizures/Epilepsy N Acid Reflux (GERD) N Cancer Y Stroke N Asthma N Allergies N High Cholesterol N Hepatitis N Liver Disease N Headaches N Heart Failure N Osteoporosis N Gynecological History Statement/Question Response Flow Moderate Date of LMP 06/20/2024 Frequency of Cycle (Q days) 28 Menses Monthly Y Duration of Flow (days) 6 Current Control Method None LMP Approximate Obstetrics History GPAL:G 3 P 3 0 0 3 Type Value Full Term 3 Induced 0 Spontaneous 0 Premature 0 Living 3 Total 3 Immunizations Vaccine Type Date Status Note Provider Nam e and Address Organization Details Recorded Time Influenza, MDCK, quadrivalent, PF 12/13/2022 completed Lj Vides [place] null, [place] [facility] 06/27/2024 13:58:57 COVID-19, mRNA, LNP-S, PF, 100 mcg/0.5mL dose or 50 mcg/0.25mL dose 09/03/2020 completed Lj Vides [place] [facility] 06/27/2024 13:58:57 COVID-19, mRNA, LNP-S, PF, 100 mcg/0.5mL dose or 50 mcg/0.25mL dose 10/01/2020 completed Lj Vides [place] [facility] 06/27/2024 13:58:57 Past Encounters Encounter ID Performer Location Encounter Start Date Encounter Closed Date Diagnosis/Indication Diagnosis SNOMED-CT Code Diagnosis ICD10 Code Diagnosis IMO Codes Diagnosis Note [id number] Felice Ruiz MD [facility] [employer] [address] [place] [address] 06/22/2023 11:10:05 06/22/2023 13:16:10 Adult health examination 198046824 Z00.01 well exam completed Generalize d anxiety disorder 51525567 F41.1 start buspar 5mg bid. History of malignant neoplasm of breast 229166201 Z85.3 hx noted late 2022, with surgery. Insulin resistance 13146 5000 E88.819 fasting insulin due Prediabetes 779798971 R7 3.03 a1c due Cholesterol screening 27 9636387 Z13.220 fasting lipids due Long-term drug therapy 025069417 Z79.899 cmp, cbc and b12, folate labs are due Thyroid di sorder screening 894003934 Z13.29 full TFT panel due Cervical lymphadenopathy 474022507 R59.0 send for u/s soft tissue neck History of bilateral mastectomy 701746667 Z90.13 late 2022. doing well. [id number] Felice Ruiz MD [facility] [place] [address] [place] [address] 06/27/2024 13:42:50 06/27/2024 15:06:17 Overweight in adulthood with body mass index of 25 or more but less than 30 198403280 E66.3 Z68.29 5422636131 BMI 29.8 Generalize d anxiety disorder 18068136 F41.1 Patient is stable without medication at this time. She is currently not interested in any starting any SSRI therapy Adult th examination 059784799 Z00.01 well exam completed History of malignant neoplasm of breast 424033951 Z85.3 hx noted late 2022, with surgery. History of bilateral mastectomy 606524797 Z90.13 late 2022. doing well. Insulin resistance 45143 5000 E88.819 fasting insulin due Prediabetes 115741733 R7 3.03 a1c due Cholesterol screening 27 6674084 Z13.220 fasting lipids due Long-term drug therapy 090666627 Z79.899 cmp, cbc and b12, folate labs are due Thyroid di sorder screening 077712408 Z13.29 full TFT panel due Positive s creening for depression on PHQ-9 (Patient Health Questionnaire 9) 9381531700 86465 Z13.31 0851974108 Positive screening today but not interested at this time and starting any medication . Polyp of gallbladder 197 145029 K82.4 53497 Patient would like to have the follow-up ultrasound of the gallbladde r to track sizing of the gallbladde r polyp Fatigue 30224201 R53.83 9201379 Screening vitamin-D as well as iron studies Health Concerns Section Related Observation LastModified by Organization Detai ls LastModified Time None Recorded Concern Status LastModified by Organization Details LastModified Time None Recorded Advance Directives Directive Y: Payers Insurance Date Sequence Insurance Name Policy Number Policy Mart Covered Member ID Mart Member ID Guarantor Name 07/11/2024 1 [id number] Bruna Maciel [id number] Bruna Maciel Notes Date Note Type Note Provider Name and Address Organization Details Recorded Time 06/22/2023 text/html Generic HPI TemplateReported by PatientHx Generalized anxiety disorder. exacerbated at this time in life. high anxiety. not taking any med yet. hx of early stage breast cancer, s/p bilat. mastectomy, w/reconstruction. doing very well since surgery in winter 2022. Hx of insulin resistance.prediabetes hx. Cervical lymph node reported in the left side that she feels isn't large but is staying same size. TAJ Bryant Attn: Accounting,[address] [facility], [place], [address], [facility] 06/29/2023 08:43:44 06/27/2024 text/html Generic HPI TemplateReported by PatientHx Generalized anxiety disorder. exacerbated at this time in life. high anxiety. not taking any med yet. hx of early stage breast cancer, s/p bilat. mastectomy, w/reconstruction. doing very well since surgery in winter 2022. Hx of insulin resistance.prediabetes hx. History of gallbladder polyp under surveillance Here for annual wellness exam TAJ Bryant Attn: Accounting,[address] [facility], [place], [address], [facility] 07/09/2024 08:18:36 OBGyn Episode No OBEpisode recorded.
--- OUTSIDE RECORDS SUMMARY | 2025-02-25 07:25 | XMS_ITS | Patient Health Record ---
Author Organization [facility] Address [address] [id number] Phone [phone] Care Team Providers Care Systems Test Engineer Name Role Phone Vikram Astorga [phone] Results Component Value Reference Range Flag Notes COMPREHENSIVE METABOLIC PANE L Order date: 03/01/2024 Reviewed date:03/12/2024 03:48:02 PM Interpretation: Performing Lab:[facility], [facility], [address] [place], [address] Sharon Shah MD Notes/Report: reference range. Fasting reference interval FASTING: YES Not Reported: BUN and Creatinine are within GLUCOSE 87 65-99 mg/dL N UREA NITROGEN (BUN) 15 7-25 mg/dL N CREATININE 0.98 0.50-0.99 mg/dL N EGFR 72 > OR = 60 mL/min/1.73m2 N BUN/CREATININE RATIO SEE NOTE: 6-22 (calc) SODIUM 138 135-146 mmol/L N POTASSIUM 4.3 3.5-5.3 mmol/L N CHLORIDE 105 98-110 mmol/L N CARBON DIOXIDE 23 20-32 mmol/L N CALCIUM 9.3 8.6-10.2 mg/dL N PROTEIN, TOTAL 7.4 6.1-8.1 g/dL N ALBUMIN 4.5 3.6-5.1 g/dL N GLOBULIN 2.9 1.9-3.7 g/dL (calc) N ALBUMIN/GLOBULIN RATIO 1.6 1.0-2.5 (calc) N BILIRUBIN, TOTAL 1.8 0.2-1.2 mg/dL H ALKALINE PHOSPHATASE 58 31-125 U/L N AST 17 10-35 U/L N ALT 16 6-29 U/L N VITAMIN D, 25-HYDROXY, LC/MS /MS Order date: 03/01/2024 Reviewed date:03/12/2024 03:48:02 PM Interpretation: Performing Lab:[facility], [address] [place], [address] Sharon Shah MD Notes/Report: Vitamin D Status 25-OH Vitamin D: FASTING: YES Deficiency: <20 ng/mL Insufficiency: 20 - 29 ng/mL Optimal: > or = 30 ng/mL For 25-OH Vitamin D testing on patients on D2-supplementation and patients for whom quantitation of D2 and D3 fractions is required, the [facility]ure[facility](TM) 25-OH VIT D, (D2,D3), LC/MS/MS is recommended: order code 85785 (patients >2yrs). See Note 1 Note 1 For additional information, please refer to http://education.Slicebooks/faq/GIS231 (This link is being provided for informational/ educational purposes only.) VITAMIN D,25-OH,TOTAL,IA 26 30-100 ng/mL L T3, FREE Order date: 03/01/2024 Reviewed date:03/12/2024 03:48:03 PM Interpretation: Performing Lab:[facility], [address] [place], [address] Sharon Shah MD Notes/Report: FASTING: YES T3, FREE 3.2 2.3-4.2 pg/mL N HEMOGLOBIN A1c Order date: 03/01/2024 Reviewed date:03/12/2024 03:48:03 PM Interpretation: Performing Lab:[facility], [address] [place], [address] Sharon Shah MD Notes/Report: For the purpose of screening for the presence of FASTING: YES diabetes: <5.7% Consistent with the absence of diabetes 5.7-6.4% Consistent with increased risk for diabetes (prediabetes) > or =6.5% Consistent with diabetes This assay result is consistent with a decreased risk of diabetes. Currently, no consensus exists regarding use of hemoglobin A1c for diagnosis of diabetes in children. According to [place] Diabetes Association (ADA) guidelines, hemoglobin A1c <7.0% represents optimal control in non- diabetic patients. Different metrics may apply to specific patient populations. Standards of Medical Care in Diabetes(ADA). HEMOGLOBIN A1c 5.4 <5.7 % of total Hgb N INSULIN Order date: 03/01/2024 Reviewed date:03/12/2024 03:48:03 PM Interpretation: Performing Lab:[facility], [address] [place], [address] Sharon Shah MD Notes/Report: Reference Range < or = 18.4 FASTING: YES Risk: Optimal < or = 18.4 Moderate NA High >18.4 Adult cardiovascular event risk category cut points (optimal, moderate, high) are based on Insulin Reference Interval studies performed at [facility] in 2021. INSULIN 8.3 N MAGNESIUM Order date: 03/01/2024 Reviewed date:03/12/2024 03:48:03 PM Interpretation: Performing Lab:[facility], [address] [place], [address] Sharon Shah MD Notes/Report: FASTING: YES MAGNESIUM 2.0 1.5-2.5 mg/dL N CBC (INCLUDES DIFF/PLT) Order date: 03/01/2024 Reviewed date:03/12/2024 03:48:03 PM Interpretation: Performing Lab:[facility], [address] [place], [address] Sharon Shah MD Notes/Report: For adults, a slight decrease in the calculated MCHC FASTING: YES value (in the range of 30 to 32 g/dL) is most likely not clinically significant; however, it should be interpreted with caution in correlation with other red cell parameters and the patient's clinical condition. WHITE BLOOD CELL COUNT 7.7 3.8-10.8 Thousand/uL N RED BLOOD CELL COUNT 4.71 3.80-5.10 Million/uL N HEMOGLOBIN 14.1 11.7-15.5 g/dL N HEMATOCRIT 43.3 35.0-45.0 % N MCV 91.9 80.0-100.0 fL N MCH 29.9 27.0-33.0 pg N MCHC 32.6 32.0-36.0 g/dL N RDW 12.3 11.0-15.0 % N PLATELET COUNT 288 140-400 Thousand/uL N MPV 11.3 7.5-12.5 fL N ABSOLUTE NEUTROPHILS 4997 5108-2777 cells/uL N ABSOLUTE LYMPHOCYTES 6373 812-0116 cells/uL N ABSOLUTE MONOCYTES 554 200-950 cells/uL N ABSOLUTE EOSINOPHILS 131 15-500 cells/uL N ABSOLUTE BASOPHILS 69 0-200 cells/uL N NEUTROPHILS 64.9 N LYMPHOCYTES 25.3 N MONOCYTES 7.2 N EOSINOPHILS 1.7 N BASOPHILS 0.9 N VITAMIN B12/FOLATE, SERUM PA [facility] Order date: 03/01/2024 Reviewed date:03/12/2024 03:48:03 PM Interpretation: Performing Lab:[facility], [address] [place], [address] Sharon Shah MD Notes/Report: Reference Range FASTING: YES Low: <3.4 Borderline: 3.4-5.4 Normal: >5.4 VITAMIN B12 227 921-0857 pg/mL N FOLATE, SERUM 16.9 N T4, FREE Order date: 03/01/2024 Reviewed date:03/12/2024 03:48:03 PM Interpretation: Performing Lab:[facility], [address] [place], [address] Sharon Shah MD Notes/Report: FASTING: YES T4, FREE 1.1 0.8-1.8 ng/dL N TSH Order date: 03/01/2024 Reviewed date:03/12/2024 03:48:03 PM Interpretation: Performing Lab:[facility], [address] [place], [address] Sharon Shah MD Notes/Report: Reference Range FASTING: YES > or = 20 Years 0.40-4.50 Ranges First trimester 0.26-2.66 Second trimester 0.55-2.73 Third trimester 0.43-2.91 TSH 0.78 N Reason For Referral No Information Medications Medication SIG (Take, Route, Frequency, Duration) Notes Start Date End Date Diagnosis (ICD Code) Status Sertraline HCl 25 MG Tablet 1 tablet Orally Once a day; Duration: 90 days 03/14/2024 Active Social History Sex Observation Social History Observation Description Sex Observation Female Social History Additional Details Category Social Info Options Details Migrated Social History Migrated Social History (Alcohol:):yes occasionally (Recreational drug use:):no (Smoking:):no Problems Problem Type SNOMED Code ICD Code Dates Problem Status W/U Status Risk Notes Problem Chronic lymphadenitis (14663161) Chronic lymphadenitis, except mesenteric (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 Maciel [address] [place] [address] Vikram Astorga 06/22/2024 02:45 PM Telephone Encounter [facility] Maciel [address] [place] [address] Vikram Astorga Plan Of Treatment Pending Test Test Name Order Date CT Neck: soft tissues 01/05/2024 CT NECK SOFT TISSUE WITH CONTRAST 2023 Medical (General) History Medical History History ICD Code breast cancer kendy's prediabetes thyroid nodule Surgical History Surgery Date(Month/Year) bilateral mastectomy 2022
[2025-02-25 07:31] VITALS: BP 158/95; PULSE 106; RESP 18; TEMP 36.6; O2SAT 99
--- NOTE | 2025-02-25 07:50 | ED_ITS ---
HPI - General Adult General Chief complaint: Abdominal Pain Stated complaint: N/V/D Time Seen by Provider: 02/25/25 07:27 History of Present Illness HPI narrative: 49-year-old female presenting to the emergency department for evaluation for right upper quadrant abdominal pain. Patient does have a known polyp in her gallbladder and patient had been scheduled to have this removed but patient's daughter developed appendicitis and patient never got her gallbladder removed. Patient does follow-up with Dr. Steven. Patient states that she has had poor diet over the last few days. Patient reports having a hamburger and bruit over the last few days and that this is most likely caused her gallbladder flare. Patient reports that approximately 2:00 a.m. she had onset of nausea and pain. Patient reports the pain has improved but patient is still having some nausea. Patient declined any medications for pain control. 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 and bilateral mastectomy Related Data Home Medications ?Medication ?Instructions ?Recorded ?Confirmed ?Last Taken ?Type propranolol 10 mg tablet 10 mg PO DIRECTED PRN 09/2004/02/24 05/05/23 History Tachycardia cholecalciferol (vitamin D3) 100 100 mcg PO ONCE 05/1004/02/24 05/11/23 History mcg (4,000 unit) capsule multivitamin 1 tablet PO DAILY 05/11/23 0 04/02/24 05/11/23 History Allergies Allergy/AdvReac Type Severity Reaction Status Date / Time No Known Allergies Allergy Verified 02/25/25 07:35 Review of Systems 2 Review of Systems: All systems reviewed & are unremarkable except as noted in HPI and below [facility] Past Medical History Medical History Gallbladder polyp Abnormal colonoscopy pt had polyp, told her it was benign Palpitations 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 left normal - right side DX Nodular thyroid disease Surgical History Surgical History H/O bilateral mastectomy 02/09/2023 H/O breast biopsy History of orthopedic surgery Family History Family History Other Depression Hypertension Malignant carcinoid tumor of lung Nodular thyroid disease Social History Social History Smoking status: Never smoker Alcohol intake: current Drinks per week: 2 Substance use: never Substance use type: does not use Lack of Transportation: No Lack of Food: Never True Current Housing: I Have Housing Concerned About Future Housing: No Difficulty Paying Gas/Electric Bills: No Difficulty Paying for Meds: No Currently Unemployed: No Education: Master's Degree or Higher Difficulty w/ Childcare or Family Care: No Living arrangements: with family Occupation/Education: occupation Additional occupation/education comments: Gender identity (if verbalized by the patient): Female Sexual Orientation (if Verbalized by the Patient): Straight or Heterosexual Exam 2 Narrative: APPEARANCE: Well appearing, no pain, no distress, well-nourished. HEAD: normocephalic, atraumatic. EYES: PERRLA/EOMI, conjunctivae clear. NOSE: Normal no drainage EARS:TMS clear with good light reflex. THROAT: Pharynx clear, no exudate. NECK: Supple. No adenopathy, no masses. RESPIRATORY: Airway patent, respirations nonlabored. Clear to auscultation bilaterally, no rales, rhonchi, wheezing. CARDIOVASCULAR: Regular rate and rhythm without murmurs rubs or gallops. ABDOMINAL: Right upper quadrant tenderness to palpation, normal bowel sound MUSCULOSKELETAL: Moves all extremities. Strength/ROM intact, No edema, No calf tenderness. NEURO: Alert. Cranial nerves II through XII intact. Good gait. Good coordination SKIN: Warm, dry. Normal Color Course Vital Signs Vital signs: Vital Signs Temperature 97.8 F 02/25/25 07:31 Pulse Rate 106 H 02/25/25 07:31 Respiratory Rate 18 02/25/25 07:31 Blood Pressure 158/95 H 02/25/25 07:31 Pulse Oximetry 99 02/25/25 07:31 Oxygen Delivery Room Air 02/25/25 07:31 Temperature 97.8 F 02/25/25 07:31 Pulse Rate 86 02/25/25 10:29 Respiratory Rate 18 02/25/25 10:29 Blood Pressure 140/89 02/25/25 10:29 Pulse Oximetry 100 02/25/25 10:29 Oxygen Delivery Room Air 02/25/25 07:31 MDM MDM Narrative Medical decision making narrative: 49-year-old female present to the emergency department for evaluation for right upper quadrant abdominal pain. Patient does have a known gallbladder polyp. Patient has had persistent pain with associated nausea. Patient is afebrile but does have a leukocytosis of 12.8 hemoglobin of 14.3. Patient's INR is 1.1. Patient has no significant acute abnormalities on the than elevated T bili of 2.9. Patient reports her previous high was 2.4. Patient's lipase and transaminases are not elevated. UA was negative for infection. On re-evaluation patient is still having some nausea. Patient will be treated with additional medication and ultrasound will be ordered to evaluate for acute cholecystitis. Patient was updated the results of the workup and plan for further imaging. On further re-evaluation patient does feel improved. Nausea is resolved. I did order an ultrasound to further evaluate for cholecystitis and this did show some gallbladder sludge. I did discuss admission with the patient but patient does prefer to have outpatient follow-up. Patient declined any medications for pain control and will take Tylenol and ibuprofen. Patient will be provided nausea medication. Patient will have outpatient follow-up with surgery as outpatient Differential Diagnosis Differential Diagnosis: Biliary colic, cholecystitis, pancreatitis, biliary obstruction Lab Data [facility] Lab Attestation statement: I personally reviewed the patient's lab results. 02/25/25 07:53 02/25/25 07:53 Labs: Lab Results 02/25/25 02/25/25 Range/Units 07:53 07:59 WBC 12.8 H (4.5-10.0) K/mm3 RBC 4.76 (4.2-5.4) M/mm3 Hgb 14.3 (12.0-15.0) g/dL Hct 42.3 (37.0-47.0) % MCV 88.9 (80-100) fl MCH 30.0 (26-34) pg MCHC 33.8 (32-36) g/dl RDW 13.2 (11.5-14.5) % Plt Count 221 (150-375) k/mm3 MPV 9.9 (7.4-10.4) fl Immature Gran % (Auto) 0.5 (0-0.5) % Neut % (Auto) 89.4 H (45.5-73.1) % Lymph % (Auto) 5.0 L (18.3-44.2) % Owsley % (Auto) 3.8 (2.6-8.5) % Eos % (Auto) 0.9 (0-4.4) % Baso % (Auto) 0.4 (0.2-1.2) % Lymph # (Auto) 0.64 L (0.9-3.2) K/mm3 Owsley # (Auto) 0.5 (0.1-0.6) K/mm3 Eos # (Auto) 0.1 (0-0.3) K/mm3 Baso # (Auto) 0.1 (0.0-0.1) K/mm3 Abs Immat Gran (auto) 0.06 H (0.00-0.031) K/mm3 Absolute Neuts (auto) 11.5 H (1.3-6.7) K/mm3 Absolute Nucleated RBC 0.000 (0.0-0.012) K/mm3 Nucleated RBC % 0.0 (0.0-0.2) % PT 14.3 (11.1-14.7) Seconds INR 1.1 APTT 28.6 (22.3-36.8) Seconds Sodium 137 (137-145) mmol/L Potassium 4.4 (3.4-5.0) mmol/L Chloride 108 H (98-107) mmol/L Carbon Dioxide 23 (22-30) mmol/L Anion Gap 6 (4-12) mmol/L BUN 16 (7-17) mg/dL Creatinine 0.87 (0.7-1.0) mg/dL Estim Creat Clear Calc 83 ml/min Estimated GFR > 60 (59 - ) Glucose 100 (65-110) mg/dL Lactic Acid 0.8 (0.7-2.0) mmol/L Calcium 8.7 (8.4-10.2) mg/dL Total Bilirubin 2.9 H (0.2-1.3) mg/dL AST 25 (14-36) U/L ALT 18 (6-35) U/L Alkaline Phosphatase 62 (38-126) U/L Total Protein 7.6 (6.3-8.2) g/dL Albumin 4.2 (3.5-5.1) g/dL Lipase 133 (23-300) U/L Urine Color Yellow (Yellow) Urine Appearance Cloudy H (Clear) Urine pH 6.0 (5.0-9.0) Ur Specific [place] 1.021 (1.001-1.035) Urine Protein Negative (Negative) mg/dL Urine Glucose (UA) Negative (Negative) mg/dL Urine Ketones Negative (Negative) mg/dL Ur Blood (Man) Negative (Negative) Urine Nitrate Negative (Negative) Urine Bilirubin Negative (Negative) Urine Urobilinogen 0.2 (<2.0) mg/dL Leukocyte Esterase Rfl Negative (Negative) DIAZ/UL Urine RBC 0-2 (0-2) /hpf Urine WBC 0-5 (0-3) /hpf Ur Squamous Epith Cells Few (Few) /hpf Urine Bacteria None seen /hpf Urine Casts 0-2 Imaging Data Radiologist's impression: ITS Impressions Abdomen Ultrasound 02/25/25 10:20 IMPRESSION: 1: Gallbladder sludge. Discharge Plan Discharge Clinical Impression: Biliary colic Patient Disposition: Home Condition: Stable Instructions: Antibiotic Form, Low Fat Diet (ED), Clear Liquid Diet (ED), Abdominal Pain (ED) Additional Instructions: Tylenol and ibuprofen for pain control. Follow a clear liquid diet. Advance to a low-fat diet as tolerated. Zofran as needed for nausea control. Have close follow-up with surgery as outpatient. If you have any worsening symptoms then please call or return to the emergency department. Patient Language: Rw[place] Prescriptions: New ondansetron 4 mg tablet,disintegrating 4 mg PO Q8H PRN (Reason: nausea and vomiting) Qty: 14 0RF No Action propranolol 10 mg tablet 10 mg PO DIRECTED PRN (Reason: Tachycardia) multivitamin [Daily Multivitamin] Tablet 1 tablet PO DAILY Vitamin D3 100 mcg (4,000 unit) Capsule 100 mcg PO ONCE Follow-up/Referrals: Tatiana,BRITANY Choe [Primary Care Provider, Unknown] Vicente Steven DO [Physician, General Surgery]
[2025-02-25 07:58] LABS: Hematocrit 42.3 % (37.0-47.0); Hemoglobin 14.3 g/dL (12.0-15.0); Immature Granulocyte Percent A 0.5 % (0-0.5); Lymphocytes Absolute Auto 0.64 K/mm3 (0.9-3.2); Mean Corpuscular HGB Conc 33.8 g/dl (32-36); Mean Corpuscular Hemoglobin 30.0 pg (26-34); Mean Corpuscular Volume 88.9 fl (80-100); Nucleated Red Blood Cells Absolute Auto 0.000 K/mm3 (0.0-0.012); Nucleated Red Blood Cells Perc 0.0 % (0.0-0.2); Platelet Count Result 221 k/mm3 (150-375); Red Blood Count 4.76 M/mm3 (4.2-5.4); White Blood Count 12.8 K/mm3 (4.5-10.0)
[2025-02-25] MEDS: LACTATED RINGERS 1,000 ML 999 ML IV CONT (08:03)
[2025-02-25 08:08] LABS: Add Urine Microscopic? YES; Appearance Urine Cloudy (Clear); Glucose Urine UA Negative (Negative); Leukocyte Esterase Ur Negative LEU/UL (Negative); Nitrate Urine Negative (Negative); Non Pathogenic Casts 0-2; Specific Grav Ur 1.021 (1.001-1.035)
[2025-02-25 08:11] LABS: Alanine Aminotransferase 18 U/L (6-35); Albumin Level 4.2 g/dL (3.5-5.1); Alkaline Phosphatase 62 U/L (38-126); Anion Gap 6 mmol/L (4-12); Aspartate Amino Transferase 25 U/L (14-36); Bilirubin,Total 2.9 mg/dL (0.2-1.3); Blood Urea Nitrogen 16 mg/dL (7-17); Calcium 8.7 mg/dL (8.4-10.2); Carbon Dioxide 23 mmol/L (22-30); Chloride 108 mmol/L (98-107); Estimated CRCL calculation 83 ml/min; Estimated Glomerular Filt Rate > 60; Glucose 100 mg/dL (65-110); Lipase 133 U/L (23-300); Potassium 4.4 mmol/L (3.4-5.0); Sodium 137 mmol/L (137-145); Total Protein 7.6 g/dL (6.3-8.2)
--- OUTSIDE RECORDS SUMMARY | 2025-02-25 08:15 | XMS_ITS | Clinical Summary ---
Author Organization [facility] Address [address] Attn: Epic Prelude ADT [place] POWER [address] Care Team Providers Care Supervisor [employer] Name Role Phone Unavailable Primary Care Provider Unavailabl e Allergies No known active allergies Family History Medical History Relation Name Comments Healthy Brother 1 Hypertension Brother 2 Hypertension Father Healthy Mother Relation Name Status Comments Brother 1 Alive Brother 2 Alive Father Alive Mother Alive Social History Tobacco Use Types Packs/Day Years Used Date Smoking Tobacco: Never Comments Yes Sex and Gender Information Value Date Recorded Sex Assigned at Not on file Legal Sex Female 2:39 PM [employer] Gender Identity Not on file Sexual Orientation Not on file Plan of Treatment Health Maintenance Due Date Last Done Comments DTAP/TDAP/TD VACCINES (1 - Tdap) 1996 HEPATITIS B VACCINES (1 of 3 - 19+ 3-dose series) 07/29 HPV/Cotest (21-29) 1998 CERVICAL CANCER SCREENING 08/17/2007 HPV/Cotest (30-65) 08/17/2007 PAP SMEAR 08/17/2007 BREAST CANCER SCREENING 2017 COLORECTAL SCREENING 2022 Colorectal Cancer Screening 2022 FIT-DNA Q 3 years 2022 FIT/FOBT Q 1 year 2022 Flex Sig/CT Colonography Q 5 years 2022 INFLUENZA VACCINE (#1) 2024 RSV VACCINE (60+ or ) (1 - 1-dose 75+ series) 2052 Insurance [employer] PPO
--- OUTSIDE RECORDS SUMMARY | 2025-02-25 08:15 | XMS_ITS | Clinical Summary ---
Author Organization [facility] Address [address] [place] [id number] Care Team Providers Care Cat Scanner Operator Name Role Phone Quianajair Daija VANG Primary Care Pr ovider Allergies No known active allergies Medications cholecalciferol (VITAMIN D-3) 2000 unit capsuleIndicati ons:Vitamin D Deficiency Take 1 capsule (2,000 Units total) by mouth early intervention school psychologist before breakfast 2 Active multivitamin capsuleIndicati ons:Vitamin Deficiency Prevention Take 1 capsule by mouth early intervention school psychologist before breakfast 2 Active metroNIDAZOLE (METROGEL) 1 [...] CDT Respiratory Rate 18 01/25/2024 1:04 PM ANGLE SHEARER Oxygen Saturation 99% 09/19/2024 8:40 AM CDT [...] this topic Medical Devices Implanted Type Area Training Analyst Device Identifier Shelf Expiration Date Model / Serial / Lot [employer] Implant Hsc Gel Breast Smooth Round Moderate 600cc [id number] - [id number] - [id number] Implanted:Qty: 1 on 02/09/2023 by Saira Camilo MD at [facility] Breast Right: Breast [employer] [id number] P / [id number] / Description:IMPLANT PAUSE PE RFORMED [employer] Implant Hsc Gel Breast Smooth Round Moderate 600cc [id number] - [id number] - [id number] Implanted:Qty: 1 on 02/09/2023 by Saira Camilo MD at [facility] Breast Left: Breast [employer] [id number] P / [id number] / Description:IMPLANT PAUSE PE RFORMED [employer] Graft Tissue Tailored Dermis Large 1mm Thick Cortiva 10.2x21.1cm [id number] - [id number] - [id number] Implanted:Qty: 1 on 02/09/2023 by Saira Camilo MD at [facility] Left: Breast [employer] 04/28/2027 [id number] / [id number] / [id number] [employer] Graft Tissue Tailored Dermis Large 1mm Thick Cortiva 10.2x21.1cm [id number] - [id number] - [id number] Implanted:Qty: 1 on 02/09/2023 by Saira Camilo MD at [facility] Right: Breast [employer] 03/30/2027 [id number] / [id number] / [id number] [employer] Mesh Surg [place] 3d 21x7.5cm Soft Tissue Scaffold Gem Sh3d06 - [id number] Implanted:Qty: 1 on 02/09/2023 by Saira Camilo MD at [facility] Bilateral: Breast [employer] 10/19/2025 [id number] / / [id number] Description:Implant pause pe rformed Shashi [place] Mesh Surgical P4hb Synthetic Chinik Galaflex Lite 17cm Soft Tissue Repair [id number] - [id number] Implanted:Qty: 1 on 02/09/2023 by Saira Camilo MD at [facility] Right: Breast Shashi [place] 12/29/2023 [id number] / / [id number] Description:Implant pause pe rformed Shashi Adi [employer] P4hb Synthetic Chinik Galaflex Lite 17cm Soft Tissue Repair [id number] - [id number] Implanted:Qty: 1 on 02/09/2023 by Saira Camilo MD at [facility] Left: Breast Shashi Adi 12/29/2023 [id number] / / [id number] Description:Implant pause pe rformed Insurance [employer] OPEN ACCESS RkylinNA OPEN ACCESS Care Teams Cat Scanner Operator Relationship Specialty Start Date End Date Daija Simpson PA PCP - General Physician Screw Driver Operator 12/20/22
[2025-02-25 08:23] LABS: INR 1.1; Prothrombin Time 14.3 Seconds (11.1-14.7)
[2025-02-25 08:24] LABS: Partial Thromboplastin Time 28.6 Seconds (22.3-36.8)
[2025-02-25] MEDS: ONDANSETRON INJ 4 MG/2 ML VIAL IV PUSH (09:52)
[2025-02-25 10:29] VITALS: BP 140/89; PULSE 86; RESP 18; O2SAT 100
== END 2025-02-25 10:43 | disposition home or self-care (01) ==
PROVIDERS: Emergency Provider Emergency Medicine; PCP Physician Assistant
DX: R10.11 Right upper quadrant pain (principal); K82.9 Disease of gallbladder, unspecified; Z85.3 Personal history of malignant neoplasm of breast; Z90.13 Acquired absence of bilateral breasts and nipples
CPT/HCPCS: 36415; 76705; 80053; 81001; 83605; 83690; 85025; 85610; 85730; 96361; 96374; 99284; J2405; J7120